=== PATIENT | female | born 1960 | race Caucasian/White ===

== ENCOUNTER 2022-10-30 21:28 | Day surgery (SDC) | payer BC, SELFPAY ==
[2022-10-30 21:56] VITALS: BP 120/71; PULSE 74; RESP 18; TEMP 36.9; O2SAT 99; BMI 30.1
--- NOTE | 2022-10-30 22:25 | ED.ABDPAIN ---
HPI - Abdominal Pain General Time Seen by Provider: 22:25 Date Seen: 10/30/22 Chief Complaint: Abdominal Pain Stated Complaint: Right Side Abdominal Pain Time Seen by Provider: 10/30/22 22:23 Source: patient, RN notes reviewed and old records reviewed Mode of arrival: ambulatory Limitations: no limitations History of Present Illness HPI narrative: Astrid is a very pleasant 62-year-old female previously healthy who comes to the emergency room for evaluation of right sided abdominal pain. Patient notes that she works 12 hour shifts and got off shift at 0500 hours this morning. She noted some discomfort in the right side of her abdomen and her back and took some aspirin before she went to bed. She got up this evening was able to walk to work with no problem but when she got there she noted that movement definitely increased her pain and stated that every step seemed to make her more uncomfortable. She notes having night sweats a few nights ago but no fever or chills. She denies nausea or vomiting. She notes the pain has been increasing and she points to the right lower quadrant as the source of her discomfort. She denies dysuria or hematuria. She also feels like her abdomen is somewhat bloated and feels like she has not been passing gas as much as normal. She has not noticed any diarrhea. Patient has had a large ovarian cyst removal with oophorectomy remotely in the past. She did have some mesh placed in her abdomen at that time. She has not had a history of small-bowel obstruction. She denies any trauma. Patient notes that she has false dentition top and bottom. She has had previous surgeries with no problems with anesthesia. She has remote history of smoking and uses alcohol only occasionally. Patient notes that 2 years ago she had severe COVID and was hospitalized for extended period. She states that she lost all of her hair. This was in [place]. No further respiratory problems at this time. Related Data Home Medications Medication Instructions Recorded Confirmed escitalopram oxalate 5 mg tablet 5 mg PO DAILY 10/30/22 10/30/22 losartan 50 mg-hydrochlorothiazide 1 tab PO DAILY 10/30/22 10/30/22 12.5 mg tablet nabumetone 500 mg tablet 500 mg PO BID 10/30/22 10/30/22 Allergies Allergy/AdvReac Type Severity Reaction Status Date / Time Penicillins Allergy Mild Hives Verified 10/31/22 02:22 Review of Systems Status of ROS Reports: 10 or more systems reviewed and unremarkable except as noted in History and below Const Reports: night sweats (A few nights ago); Denies: fever or chills Eyes Denies: change in vision ENMT Denies: throat pain or neck pain Cardio Denies: chest pain or shortness of breath with exertion Resp Denies: shortness of breath or cough GI Reports: abdominal pain; Denies: nausea, vomiting or diarrhea Denies: painful urination Musculo Denies: neck pain Integ/Breast Denies: rash PFSH PFSH Surgical History (Updated 10/30/22 @ 23:03 by Juan Donaldson RN) History of hysterectomy Social History Smoking Status: Former smoker Do you use any of these nicotine containing products: None Second hand tobacco smoke exposure: No How often do you have a drink containing alcohol: never How often do you have six or more drinks on one occasion: Never AUDIT-C Alcohol total score: 0 Non-prescribed substance use: denies use Exam Narrative: Exam Narrative: Alert and oriented. Nontoxic in appearance. Head is atraumatic normocephalic. Oral cavity with moist mucous membranes. Pharynx is well visualized. Neck is supple without lymphadenopathy Heart with regular rate and rhythm and lungs are clear to auscultation Abdomen is soft. Patient has tenderness noted right lower quadrant and to a lesser extent right upper quadrant. Bowel sounds are present. Abdomen somewhat protuberant. Straight leg raise does not increase discomfort but internal external rotation of the right hip does increase pain. Hitting the right heel does increase abdominal pain. Const: Vital Signs, click to edit/add: Vital Signs - 24 hr 10/30/22 21:56 10/30/22 22:50 10/30/22 22:58 Temperature 98.5 F 98.5 F Pulse Rate 68 Pulse Rate [Right Pulse Oximeter] 74 Respiratory Rate 18 16 Blood Pressure 151/69 H Blood Pressure [Ri ght Upper Arm] 120/71 Pulse Oximetry 99 93 Oxygen Delivery Me thod Room Air 10/31/22 00:12 10/30/22 23:03 10/30/22 23:00 Temperature 98.5 F Pulse Rate 65 Pulse Rate [Right Pulse Oximeter] Respiratory Rate 16 Blood Pressure 135/67 Blood Pressure [Ri ght Upper Arm] Pulse Oximetry 94 94 Oxygen Delivery Me thod 10/30/22 23:32 10/31/22 00:02 Temperature Pulse Rate 69 65 Pulse Rate [Right Pulse Oximeter] Respiratory Rate 16 16 Blood Pressure 131/61 142/66 H Blood Pressure [Ri ght Upper Arm] Pulse Oximetry 92 92 Oxygen Delivery Me thod Documenting provider has reviewed patient's vital signs: yes Course Course Hospital Course: Patient noted to have some peritoneal signs with rebound tenderness and pain with hip rotation. She has no fever chills at this time. Differential diagnosis includes but is not limited to appendicitis, diverticulitis, bowel obstruction, UTI, ureteral colic, ovarian pathology,. Patient will have IV placed and be given Toradol 15 mg IV and 1 L normal saline. Labs will include a CBC, comprehensive panel, CRP, urinalysis. Will plan on getting abdominal and pelvic CT. Vital Signs Vital signs: Initial Vital Signs Temperature 98.5 F 10/30/22 21:56 Temperature Source Temporal Artery Scan 10/30/22 21:56 Pulse Rate 74 10/30/22 21:56 Respiratory Rate 18 10/30/22 21:56 Blood Pressure 120/71 10/30/22 21:56 Blood Pressure Mean 87 10/30/22 21:56 Blood Pressure Position Sitting 10/30/22 21:56 Pulse Oximetry 99 10/30/22 21:56 Oxygen Delivery Method 10/30/22 21:56 Vital Signs Temperature 98.5 F 10/30/22 21:56 Pulse Rate 74 10/30/22 21:56 Respiratory Rate 18 10/30/22 21:56 Blood Pressure 120/71 10/30/22 21:56 Pulse Oximetry 99 10/30/22 21:56 Oxygen Delivery Method 10/30/22 21:56 Temperature 98.5 F 10/31/22 00:12 Pulse Rate 65 10/31/22 00:02 Respiratory Rate 16 10/31/22 00:02 Blood Pressure 142/66 H 10/31/22 00:02 Pulse Oximetry 92 10/31/22 00:02 Oxygen Delivery Method 10/30/22 21:56 MDM - Abdominal Pain MDM Narrative Medical decision making narrative: 1. Acute appendicitis-patient has a CT confirmed appendicitis after onset of pain almost 24 hours ago. Patient is afebrile with normal vital signs but does have an elevated white count and CRP. Consult with surgeon Dr. Cárdenas. Plan is for 0600 hours appendectomy. Will initiate antibiotics x1. Given her penicillin allergy will use Rocephin 1 g and Flagyl 500 mg IV. Fluids maintenance after 1 L bolus will be 125 mils per hour. 2. Lung nodule-plain film noted to have lung nodule. Unfortunately we had ability to do comparison as we had no x-rays on file. CT was recommended and this has turned out to be reassuring with no evidence of nodule or abnormal finding. 3. History of severe COVID-this was 2 years ago and did require extended hospitalization in [place].. Patient is fairly active and able to walk to work without difficulty. 2. Disposition- at this time we will keep patient in the emergency room as surgery is scheduled for 0600 hours which is approximately 4 hours from this time. Patient initially declined pain medication but now is receptive. Will use morphine 4 mg IV q.4 hours p.r.n.. Patient will be admitted to same-day surgery. EKG reassuring and chest CT without evidence of abnormality. Patient has had no previous problems with anesthesia. She represents low risk for surgery. Lab Data Attestation: I reviewed the patient's lab results. Labs: Lab Results 10/30/22 10/30/22 10/30/22 Range/Units 22:40 22:40 22:40 WBC 13.78 H (4.50-11.00) K/uL RBC 4.33 (4.00-5.20) m/uL Hgb 13.7 (12.0-16.0) gm/dL Hct 40.8 (33.0-51.0) % MCV 94 (80-100) fL MCH 32 (26-34) pg MCHC 34 (32-36) gm/dL RDW Coeff of [place] 13.1 (11.5-15.5) % Plt Count 286 (140-440) K/uL Neut % (Auto) 78.8 H (42.0-72.0) % Lymph % (Auto) 11.2 L (20-44) % [place] % (Auto) 7.4 (0.0-11.0) % Eos % (Auto) 0.9 (0.0-7.0) % Baso % (Auto) 0.6 (0.0-3.0) % Neut # (Auto) 10.90 H (1.7-7.0) K/uL Lymph # (Auto) 1.50 (0.90-2.90) K/uL [place] # (Auto) 1.00 H (0.00-0.90) K/UL Eos # (Auto) 0.10 (0.00-0.50) K/uL Baso # (Auto) 0.10 (0.00-0.30) K/uL Sodium 138 (135-149) mmol/L Potassium 3.5 L (3.6-5.1) mmol/L Chloride 103 (96-114) mmol/L Carbon Dioxide 27 (20-32) mmol/L BUN 20 (7-30) mg/dL Creatinine 0.6 (0.5-1.5) mg/dL Estimated Creat Clear 47.01 Estimated GFR 100 ml/min Glucose 123 H (60-115) mg/dL Calcium 9.2 (8.4-10.6) mg/dL Total Bilirubin 0.6 (0.1-1.5) mg/dL AST 21 (12-35) U/L ALT 19 (4-35) U/L Alkaline Phosphatase 111 (40-150) U/L C-Reactive Protein 3.2 H (0.5-1.0) mg/dL Total Protein 7.4 (6.0-8.3) g/dL Albumin 4.4 (3.3-5.0) g/dL Lipase 91 (23-300) U/L Urine Color Yellow (Yellow) Urine Appearance Clear (Clear) Urine pH 5.5 (5.0-8.5) Ur Specific [place] 1.020 (1.000-1.030) Urine Protein Negative (Negative) Urine Glucose (UA) Negative (Negative) Urine Ketones Negative (Negative) Urine Blood Trace-intact A (Negative) Urine Nitrite Negative (Negative) Urine Bilirubin Negative (Negative) Urine Urobilinogen 0.2 (0.2-1.0) Ur Leukocyte Esterase Negative (Negative) Urine RBC 0-2 (0-2) Urine WBC 0-2 (0-5) Ur Squamous Epith Cells None (None-Few) Urine Bacteria None (None) SARS-CoV-2 (PCR) (Negative) Influenza Type A (PCR) (Negative) Influenza Type B (PCR) (Negative) 10/31/22 Range/Units 01:50 WBC (4.50-11.00) K/uL RBC (4.00-5.20) m/uL Hgb (12.0-16.0) gm/dL Hct (33.0-51.0) % MCV (80-100) fL MCH (26-34) pg MCHC (32-36) gm/dL RDW Coeff of [place] (11.5-15.5) % Plt Count (140-440) K/uL Neut % (Auto) (42.0-72.0) % Lymph % (Auto) (20-44) % [place] % (Auto) (0.0-11.0) % Eos % (Auto) (0.0-7.0) % Baso % (Auto) (0.0-3.0) % Neut # (Auto) (1.7-7.0) K/uL Lymph # (Auto) (0.90-2.90) K/uL [place] # (Auto) (0.00-0.90) K/UL Eos # (Auto) (0.00-0.50) K/uL Baso # (Auto) (0.00-0.30) K/uL Sodium (135-149) mmol/L Potassium (3.6-5.1) mmol/L Chloride (96-114) mmol/L Carbon Dioxide (20-32) mmol/L BUN (7-30) mg/dL Creatinine (0.5-1.5) mg/dL Estimated Creat Clear Estimated GFR ml/min Glucose (60-115) mg/dL Calcium (8.4-10.6) mg/dL Total Bilirubin (0.1-1.5) mg/dL AST (12-35) U/L ALT (4-35) U/L Alkaline Phosphatase (40-150) U/L C-Reactive Protein (0.5-1.0) mg/dL Total Protein (6.0-8.3) g/dL Albumin (3.3-5.0) g/dL Lipase (23-300) U/L Urine Color (Yellow) Urine Appearance (Clear) Urine pH (5.0-8.5) Ur Specific [place] (1.000-1.030) Urine Protein (Negative) Urine Glucose (UA) (Negative) Urine Ketones (Negative) Urine Blood (Negative) Urine Nitrite (Negative) Urine Bilirubin (Negative) Urine Urobilinogen (0.2-1.0) Ur Leukocyte Esterase (Negative) Urine RBC (0-2) Urine WBC (0-5) Ur Squamous Epith Cells (None-Few) Urine Bacteria (None) SARS-CoV-2 (PCR) Negative SARS-CoV-2 (Negative) Influenza Type A (PCR) Negative PCR FLU A (Negative) Influenza Type B (PCR) Negative PCR FLU B (Negative) Imaging Data CT scan - abdomen: Attestation: I have reviewed the pertinent imaging results. My impression: Acute appendicitis Radiologist's impression: Lower chest: Unremarkable. Liver: Unremarkable. Spleen: Unremarkable. Pancreas: Unremarkable. Gallbladder: Unremarkable. Kidney: Unremarkable. No kidney or ureteral stones or obstruction seen. Adrenal: Unremarkable. Bowel: Unremarkable. The appendix is distended measuring 12 mm. There is mild wall enhancement and trace ground-glass infiltration of the surrounding fat is seen. No periappendiceal abscess is seen. Vascular: Unremarkable. Lymph: Unremarkable. Peritoneum: Unremarkable. No pneumoperitoneum is seen. No significant ascites is noted. Pelvis: The patient is status post hysterectomy. Soft tissue: Unremarkable. Bone: Unremarkable for age. IMPRESSION: 1. The appendix is distended measuring 12 mm. There is mild wall enhancement and trace ground-glass infiltration of the surrounding fat is seen. No periappendiceal abscess is seen. These findings are consistent with acute appendicitis. CT scan - chest: Attestation: I have reviewed the pertinent imaging results. Radiologist's impression: Cardiovascular: The heart has an unremarkable appearance and size. The pulmonary arteries are unremarkable in appearance. No sign of aneurysm or dissection in the thoracic aorta. Mediastinum: No mass or adenopathy seen. Lung: Moderate centrilobular emphysema is present bilaterally and most prominent in the apices. No suspicious pulmonary nodules are identified and the recent asymmetric density in the right apex may be due to summation artifacts on parenchymal scarring seen surrounding an area of focal emphysema. Pleura and pericardium: No sign of pleural effusion seen. No significant pericardial effusion is present. Chest wall and axilla: No mass or adenopathy seen. Bone: Unremarkable for age. Upper abdomen: Unremarkable. IMPRESSION: 1. No suspicious pulmonary nodules are identified and the recent asymmetric density in the right apex may be due to summation artifacts on parenchymal scarring seen surrounding an area of focal emphysema. ECG Data Attestation: I personally reviewed and interpreted this ECG as follows: ECG interpretation date: 10/31/22 Interpretation: EKG by my read shows sinus bradycardia at a rate of 58. I do not note any any acute ST or T-wave changes. Slight flattening of the T-wave in AVF and T-wave inversion mild in 3. No acute changes. Discharge Plan Discharge Clinical Impression: Acute appendicitis Patient Disposition: Admitted As Inpatient Condition: Improved
--- NOTE | 2022-10-30 22:35 | CRLHL7_ITS ---
For Patients: As a result of the Cures Act, medical imaging exams and procedure reports are released immediately into your electronic medical record. You may view this report before your referring provider. If you have questions, please contact your health care provider. INDICATION: Right lower quadrant abdominal pelvic pain TECHNIQUE: CT Abdomen and pelvis with i.v. contrast. Coronal and sagittal reformats were obtained. CONTRAST: 83 mL Isovue 370 COMPARISON: None FINDINGS: Lower chest: Unremarkable. Liver: Unremarkable. Spleen: Unremarkable. Pancreas: Unremarkable. Gallbladder: Unremarkable. Kidney: Unremarkable. No kidney or ureteral stones or obstruction seen. Adrenal: Unremarkable. Bowel: Unremarkable. The appendix is distended measuring 12 mm. There is mild wall enhancement and trace ground-glass infiltration of the surrounding fat is seen. No periappendiceal abscess is seen. Vascular: Unremarkable. Lymph: Unremarkable. Peritoneum: Unremarkable. No pneumoperitoneum is seen. No significant ascites is noted. Pelvis: The patient is status post hysterectomy. Soft tissue: Unremarkable. Bone: Unremarkable for age. IMPRESSION: 1. The appendix is distended measuring 12 mm. There is mild wall enhancement and trace ground-glass infiltration of the surrounding fat is seen. No periappendiceal abscess is seen. These findings are consistent with acute appendicitis. Dictated by Alex Rincon MD @ 10/31/2022 12:32:06 AM Please note that all CT scans at this facility use dose modulation, iterative reconstruction, and/or weight-based dosing when appropriate to reduce radiation dose to as low as reasonably achievable. Dictated by: Alex Rincon MD @ 10/31/2022 00:33:59 (Electronically Signed)
[2022-10-30] MEDS: 0.9 % SODIUM CHLORIDE 1000 ml 1,000 ML IV (22:49)
[2022-10-30 22:50] VITALS: TEMP 36.9
[2022-10-30] MEDS: KETOROLAC 15 MG/ML inj IVP (22:50)
[2022-10-30 22:54] LABS: Appearance Urine Clear (Clear); Bilirubin Urine Negative (Negative); Blood Urine Trace-intact (Negative); Color Urine Yellow (Yellow); Glucose Urine Negative (Negative); Ketones Urine Negative (Negative); Leukocyte Esterase Urine Negative (Negative); Nitrite Urine Negative (Negative); Protein Urine Negative (Negative); Urobilinogen Urine 0.2 (0.2-1.0); pH Urine 5.5 (5.0-8.5)
[2022-10-30 22:57] LABS: Basophils Percent Auto 0.6 % (0.0-3.0); Eosinophils Percent Auto 0.9 % (0.0-7.0); Hematocrit 40.8 % (33.0-51.0); Hemoglobin* 13.7 gm/dL (12.0-16.0); Immature Granulocytes Pct Auto 1.1 %; Lymphocytes Percent Auto 11.2 % (20-44); Mean Corpuscular HGB Conc 34 gm/dL (32-36); Mean Corpuscular Hemoglobin 32 pg (26-34); Mean Corpuscular Volume 94 fL (80-100); Monocytes Percent Auto 7.4 % (0.0-11.0); Neutrophils Percent Auto 78.8 % (42.0-72.0); Platelet Count* 286 K/uL (140-440); RDW Coefficient of Variation % 13.1 % (11.5-15.5); Red Blood Count 4.33 m/uL (4.00-5.20); White Blood Count* 13.78 K/uL (4.50-11.00)
[2022-10-30 22:58] VITALS: BP 151/69; PULSE 68; RESP 16; O2SAT 93
[2022-10-30 22:58] LABS: Slide Review Reflex No
[2022-10-30 23:00] VITALS: BP 135/67; PULSE 65; RESP 16; O2SAT 94
[2022-10-30 23:03] VITALS: O2SAT 94
[2022-10-30 23:05] LABS: RBC Urine 0-2 (0-2); WBC Urine 0-2 (0-5)
[2022-10-30 23:06] LABS: Albumin* 4.4 g/dL (3.3-5.0); Chloride* 103 mmol/L (96-114)
[2022-10-30 23:07] LABS: Potassium* 3.5 mmol/L (3.6-5.1); Sodium* 138 mmol/L (135-149)
[2022-10-30 23:09] LABS: Creatinine* 0.6 mg/dL (0.5-1.5); Est. Creatinine Clearance* 47.01; Estimated Glomerular Filt Rate 100 ml/min
[2022-10-30 23:10] LABS: Alanine Aminotransferase* 19 U/L (4-35); Alkaline Phosphatase* 111 U/L (40-150); Aspartate Amino Transferase* 21 U/L (12-35); Bilirubin Total* 0.6 mg/dL (0.1-1.5); Blood Urea Nitrogen* 20 mg/dL (7-30); Calcium* 9.2 mg/dL (8.4-10.6); Carbon Dioxide* 27 mmol/L (20-32); Glucose* 123 mg/dL (60-115); Lipase* 91 U/L (23-300); Total Protein* 7.4 g/dL (6.0-8.3)
[2022-10-30 23:13] LABS: C Reactive Protein* 3.2 mg/dL (0.5-1.0)
[2022-10-30 23:32] VITALS: BP 131/61; PULSE 69; RESP 16; O2SAT 92
[2022-10-31] VITALS (26 sets, daily range): BP systolic 102–151; BP diastolic 46–90; PULSE 56–88; RESP 16; TEMP 36.6–36.9; O2SAT 90–100
--- NOTE | 2022-10-31 01:07 | CRLHL7_ITS ---
For Patients: As a result of the Cures Act, medical imaging exams and procedure reports are released immediately into your electronic medical record. You may view this report before your referring provider. If you have questions, please contact your health care provider. INDICATION: Acute appendicitis TECHNIQUE: Chest radiograph 1 view COMPARISON: None FINDINGS: The sensitivity and specificity of the exam are moderately limited by the patient`s body habitus. Mediastinum: The mediastinum is normal in appearance. The cardiac silhouette is mildly enlarged but may be accentuated by the portable technique. Lung: There is an ill-defined asymmetric density in right upper lung zone measuring 9 mm. No sign of pleural effusion seen. No pneumothorax is identified. Bone and Soft tissue: Unremarkable for age. IMPRESSIONS: 1. There is an ill-defined asymmetric density in right upper lung zone measuring 9 mm. Comparison with any prior outside imaging is recommended. If these cannot be obtained, follow up outpatient chest CT is recommended for further evaluation. 2. The cardiac silhouette is mildly enlarged but may be accentuated by the portable technique. Dictated by Alex Rincon MD @ 10/31/2022 1:39:37 AM Dictated by: Alex Rincon MD @ 10/31/2022 01:39:41 (Electronically Signed)
--- NOTE | 2022-10-31 01:53 | CRLHL7_ITS ---
For Patients: As a result of the Century Cures Act, medical imaging exams and procedure reports are released immediately into your electronic medical record. You may view this report before your referring provider. If you have questions, please contact your health care provider. INDICATION: Right upper lung 9mm density recent chest radiograph, appendicitis TECHNIQUE: CT chest with i.v. contrast during the venous phase. Coronal and sagittal reformats were obtained. CONTRAST: 75 mL Isovue 370 COMPARISON: CXR 10/31/2022 FINDINGS: Cardiovascular: The heart has an unremarkable appearance and size. The pulmonary arteries are unremarkable in appearance. No sign of aneurysm or dissection in the thoracic aorta. Mediastinum: No mass or adenopathy seen. Lung: Moderate centrilobular emphysema is present bilaterally and most prominent in the apices. No suspicious pulmonary nodules are identified and the recent asymmetric density in the right apex may be due to summation artifacts on parenchymal scarring seen surrounding an area of focal emphysema. Pleura and pericardium: No sign of pleural effusion seen. No significant pericardial effusion is present. Chest wall and axilla: No mass or adenopathy seen. Bone: Unremarkable for age. Upper abdomen: Unremarkable. IMPRESSION: 1. No suspicious pulmonary nodules are identified and the recent asymmetric density in the right apex may be due to summation artifacts on parenchymal scarring seen surrounding an area of focal emphysema. Dictated by Alex Rincon MD @ 10/31/2022 2:36:55 AM Please note that all CT scans at this facility use dose modulation, iterative reconstruction, and/or weight-based dosing when appropriate to reduce radiation dose to as low as reasonably achievable. Dictated by: Alex Rincon MD @ 10/31/2022 02:37:00 (Electronically Signed)
[2022-10-31] MEDS: MORPHINE 4 MG/ML INJ IVP (02:19)
[2022-10-31] MEDS: 0.9 % SODIUM CHLORIDE 1000 ml 1,000 ML 125 ML IV (02:26)
[2022-10-31] MEDS: cefTRIAXone 1 GM in 0.9 % SODIUM CHLORIDE Mini-bag 100 ML IVPB (02:26)
[2022-10-31 02:39] LABS: PCR FLU A Negative PCR FLU A (Negative); PCR FLU B Negative PCR FLU B (Negative); SARS PCR* Negative SARS-CoV-2 (Negative)
[2022-10-31] MEDS: metroNIDAZOLE 500 MG/100 ML PIGGYBACK IVPB (03:11)
--- NOTE | 2022-10-31 06:01 | P.GSCN_ITS ---
History of Present Illness Consult details Date Seen: 10/31/22 Consult date: 10/31/22 Narrative: 62-year-old female was seen in the emergency room with right-sided flank pain and back pain that started yesterday at work. Patient states that she was working an of a sudden developed back pain on the right side. The pain was described as sharp and worse with movement. The pain persisted and patient did not want to eat. She did not have any nausea vomiting. She had bowel movement yesterday in the evening. In the emergency room patient had elevated WBC of 13. An abdominal CT was obtained that showed a dilated wall enhancing appendix that appears to be pos sibly retrocecal. There is no adjacent phlegmon or periappendiceal abscess. Review of Systems Narrative: General: no fevers HENT: no problems swallowing CV: Denies shortness of breath but states that her ?oxygen level? is not as good as it used to be since she had COVID 3 years ago. Resp: no cough GI: See above : no dysuria, no increased urinary frequency, no hematuria Skin: no new rashes Musculoskeletal: See above Neuro: no muscle weakness Psyche: no depression, no anxiety PFSH PFSH Medical History (Updated 10/31/22 @ 06:04 by Anthony Garrison MD) Asthma HTN (hypertension) Surgical History (Updated 10/31/22 @ 06:04 by Anthony Garrison MD) History of hysterectomy S/P carpal tunnel release S/P exploratory laparotomy S/P tubal ligation Social History (Updated 10/31/22 @ 06:05 by Anthony Garrison MD) Narrative: works at [employer] Smoking Status: Former smoker Do you use any of these nicotine containing products: None Second hand tobacco smoke exposure: No How often do you have a drink containing alcohol: never How often do you have six or more drinks on one occasion: Never AUDIT-C Alcohol total score: 0 Non-prescribed substance use: denies use Meds Home Medications and Allergies Home Medications Medication Instructions Recorded Confirmed Type escitalopram oxalate 5 mg tablet 5 mg PO DAILY 10/30/22 10/30/22 History losartan 50 mg-hydrochlorothiazide 1 tab PO DAILY 10/30/22 10/30/22 History 12.5 mg tablet nabumetone 500 mg tablet 500 mg PO BID 10/30/22 10/30/22 History Allergies Allergy/AdvReac Type Severity Reaction Status Date / Time Penicillins Allergy Mild Hives Verified 10/31/22 02:22 Exam Narrative: Exam Narrative: General appearance: Alert, cooperative, and in no distress Pulmonary: Chest symmetric, lungs clear bilaterally Cardiovascular Heart: Regular rate and rhythm, S1, S2, no murmurs/rubs/gallops Gastrointestinal Abdominal: soft, not distended, tender to palpation in the right lower quadrant with rebound tenderness. Minimally tender to palpation in epigastrium. Skin: Normal skin color, texture, and turgor. No rashes or lesions. Psychiatric: Alert, cooperative, normal affect. Const: Vital Signs, click to edit/add: Vital Signs - 24 hr 10/30/22 21:56 10/30/22 22:50 10/30/22 22:58 Temperature 98.5 F 98.5 F Pulse Rate 68 Pulse Rate [Right Pulse Oximeter] 74 Respiratory Rate 18 16 Blood Pressure 151/69 H Blood Pressure [Ri ght Upper Arm] 120/71 Pulse Oximetry 99 93 Oxygen Delivery Me thod Room Air 10/31/22 00:12 10/30/22 23:03 10/30/22 23:00 Temperature 98.5 F Pulse Rate 65 Pulse Rate [Right Pulse Oximeter] Respiratory Rate 16 Blood Pressure 135/67 Blood Pressure [Ri ght Upper Arm] Pulse Oximetry 94 94 Oxygen Delivery Me thod 10/30/22 23:32 10/31/22 00:02 10/31/22 00:32 Temperature Pulse Rate 69 65 64 Pulse Rate [Right Pulse Oximeter] Respiratory Rate 16 16 16 Blood Pressure 131/61 142/66 H 151/66 H Blood Pressure [Ri ght Upper Arm] Pulse Oximetry 92 92 93 Oxygen Delivery Me thod 10/31/22 01:02 10/31/22 01:32 10/31/22 02:01 Temperature Pulse Rate 61 58 L 67 Pulse Rate [Right Pulse Oximeter] Respiratory Rate 16 16 16 Blood Pressure 141/71 H 133/60 148/70 H Blood Pressure [Ri ght Upper Arm] Pulse Oximetry 93 91 95 Oxygen Delivery Me thod 10/31/22 02:32 10/31/22 03:02 10/31/22 03:32 Temperature Pulse Rate 60 64 58 L Pulse Rate [Right Pulse Oximeter] Respiratory Rate 16 16 16 Blood Pressure 140/61 H 141/62 H 134/64 Blood Pressure [Ri ght Upper Arm] Pulse Oximetry 95 95 95 Oxygen Delivery Me thod 10/31/22 04:02 10/31/22 04:32 10/31/22 05:01 Temperature Pulse Rate 58 L 57 L 57 L Pulse Rate [Right Pulse Oximeter] Respiratory Rate 16 16 16 Blood Pressure 130/55 L 127/66 134/58 L Blood Pressure [Ri ght Upper Arm] Pulse Oximetry 94 94 94 Oxygen Delivery Me thod 10/31/22 05:32 Temperature Pulse Rate 59 L Pulse Rate [Right Pulse Oximeter] Respiratory Rate 16 Blood Pressure 128/69 Blood Pressure [Ri ght Upper Arm] Pulse Oximetry 93 Oxygen Delivery Me thod Results Labs Labs: Abnormal lab results 10/30/22 10/30/22 10/30/22 Range/Units 22:40 22:40 22:40 WBC 13.78 H (4.50-11.00) K/uL Neut % (Auto) 78.8 H (42.0-72.0) % Lymph % (Auto) 11.2 L (20-44) % Neut # (Auto) 10.90 H (1.7-7.0) K/uL [place] # (Auto) 1.00 H (0.00-0.90) K/UL Potassium 3.5 L (3.6-5.1) mmol/L Glucose 123 H (60-115) mg/dL C-Reactive Protein 3.2 H (0.5-1.0) mg/dL Urine Blood Trace-intact A (Negative) Diabetes panel 10/30/22 Range/Units 22:40 Sodium 138 (135-149) mmol/L Potassium 3.5 L (3.6-5.1) mmol/L Chloride 103 (96-114) mmol/L Carbon Dioxide 27 (20-32) mmol/L BUN 20 (7-30) mg/dL Creatinine 0.6 (0.5-1.5) mg/dL Glucose 123 H (60-115) mg/dL Calcium 9.2 (8.4-10.6) mg/dL AST 21 (12-35) U/L ALT 19 (4-35) U/L Alkaline Phosphatase 111 (40-150) U/L Total Protein 7.4 (6.0-8.3) g/dL Albumin 4.4 (3.3-5.0) g/dL Calcium panel 10/30/22 Range/Units 22:40 Calcium 9.2 (8.4-10.6) mg/dL Albumin 4.4 (3.3-5.0) g/dL Pituitary panel 10/30/22 Range/Units 22:40 Sodium 138 (135-149) mmol/L Potassium 3.5 L (3.6-5.1) mmol/L Chloride 103 (96-114) mmol/L Carbon Dioxide 27 (20-32) mmol/L BUN 20 (7-30) mg/dL Creatinine 0.6 (0.5-1.5) mg/dL Glucose 123 H (60-115) mg/dL Calcium 9.2 (8.4-10.6) mg/dL Adrenal panel 10/30/22 Range/Units 22:40 Sodium 138 (135-149) mmol/L Potassium 3.5 L (3.6-5.1) mmol/L Chloride 103 (96-114) mmol/L Carbon Dioxide 27 (20-32) mmol/L BUN 20 (7-30) mg/dL Creatinine 0.6 (0.5-1.5) mg/dL Glucose 123 H (60-115) mg/dL Calcium 9.2 (8.4-10.6) mg/dL Total Bilirubin 0.6 (0.1-1.5) mg/dL AST 21 (12-35) U/L ALT 19 (4-35) U/L Alkaline Phosphatase 111 (40-150) U/L Total Protein 7.4 (6.0-8.3) g/dL Albumin 4.4 (3.3-5.0) g/dL All other labs normal. Assessment and Plan Assessment and plan (1) Acute appendicitis: Status: Acute Plan 62-year-old female presents with acute appendicitis. I discussed with the patient my clinical findings and her imaging findings. Patient has dilated wall enhancing appendix with elevated WBC. Her clinical exam is also consistent with acute appendicitis. I recommended to proceed with laparoscopic appendectomy. The procedure was discussed in detail. The risks associated the procedure including infection, bleeding, and injury to intra- abdominal organs were all discussed with the patient, and she agreed to proceed.
[2022-10-31] MEDS: BUPIVACAINE 0.25% 30 ML 15 ML INJECTION (06:58)
--- NOTE | 2022-10-31 07:09 | P.GSOP_ITS ---
Operative Note Date of procedure: 10/31/22 Pre-op diagnosis: 1. Acute appendicitis. Post-op diagnosis: 1. Acute suppurative appendicitis. Type of Procedure: 1. Laparoscopic appendectomy. Indications: 62-year-old female presented to emergency room with right-sided flank and back pain that started yesterday at work. Patient's pain was sharp and constant. Patient had anorexia. She denies any nausea vomiting. In the emergency room she was found to have an elevated WBC of 13. An abdominal CT her appendix was found to be dilated wall enhancing with no periappendiceal abscess. On clinical exam she had tenderness to palpation in the right lower quadrant with rebound tenderness. Given patient's clinical information and her imaging findings, acute appendicitis was suspected, and laparoscopic appendectomy was recommended. The risks of procedure including infection, bleeding, and injury to intra- abdominal organs were all discussed with the patient, and she agreed to proceed. Procedure Description: After discussing the risks and benefits of the procedure, the patient signed informed consent.? The operative site was marked and the patient was brought to the operating room and placed on the operating table in supine position.? Care was taken to pad the patient's pressure points.?? The patient was then intubated by anesthesia.?? The operative site was then prepped and draped in the usual sterile fashion.? A time-out was then performed. A 5-mm laparoscopy port was placed in the left upper quadrant guided by a 5-mm laparoscope placed into a translucent trochar. Passage through the layers of the abdominal wall was visualized with the laparoscope. A pneumoperitoneum was established. A 30-degree 5-mm laparoscope was advanced into the abdomen. The abdomen was briefly surveyed, and there was no evidence of diffuse peritonitis. A 12-mm port was placed in the left low quadrant. Omental adhesions were noted in the lower abdomen. Those were taken down with Harmonic scalpel. A 5 mm port was then placed suprapubically under direct visualization. Left upper quadrant entrance port was then examined intraabdominally by placing the camera through the left lower quadrant port and no intraabdominal injury was seen. The patient was placed in Trendelenburg position, allowing the abdominal contents to shift cephalad. The small bowel was moved toward the midline in the abdomen and this allowed for identification of the appendix. It appeared to be inflamed with no evidence of periappendiceal abscess. The appendix was grasped and dissected from the peritoneum using Harmonic scalpel. A [place] clamp was passed between the appendiceal mesentery and the base of the appendix, creating a window. The appendiceal mesentery was skeletonized with Harmonic scalpel. Arterial bleeding was noted to be seen from the appendiceal mesentery. This was controlled with 5 mm clips and Harmonic scalpel. No further bleeding was seen. The base of the appendix was skeletonized with Harmonic scalpel. A vascular load Endo-KRISTEN stapler was used to staple the appendix at its base. The appendix was then placed in an endoscopic retrieval bag and extracted from the abdomen through the 12-mm port. The abdomen was surveyed for hemostasis. And no bleeding was seen. The 12-mm port was withdrawn and the fascial defect was closed with 0-0 Vicryl stitch using Lionel Heather needle under direct visualization. The 5-mm port was removed under direct visualization. The left upper quadrant port was used to evacuate the pneumoperitoneum and then withdrawn. The skin incisions were closed with 4-0 monocryl. Steri-Strips were applied over the incisions. All counts were correct at the end of the case. The patient tolerated this procedure well and was transferred to PACU in stable condition. Findings: Dilated inflamed appendix with no evidence of perforation. Anesthesia: GETA Surgeon: Anthony Garrison MD Specimen: Appendix Condition: stable Disposition: PACU
--- NOTE | 2022-10-31 07:14 | W.ANESCHARGE ---
Anesthesia Charges Start Date/Time Anesthesia Start Date: 10/31/22 Anesthesia Start Time: 06:07 Stop Date/Time Anesthesia Stop Date: 10/31/22 Anesthesia Stop Time: 07:14 Summary Emergency: Yes
--- NOTE | 2022-10-31 11:56 | PC.NURSE ---
shift note: pt to room via bed @ 4656. pt a&o x3. pt denied pain throughout recovery. lap sites to abd with intact steri strips and are dry. Ice to incisions. pt had toast, water, juice and jello w/o nausea. pt encouraged to keep using IS and to continue at home due to low saturations while asleep. pt states she does sleep deeply. Pt ambulated in hernandes 400ft w/o increased pain. Pt voided small amount prior to dc. LS clr. Reviewed dc instructions and copies sent with pt. Belongings reviewed and sent with pt at dc. IV dc'd intact.
== END 2022-10-31 10:30 | disposition home or self-care (01) ==
LOC: ED 10-31 01:49 → SS 10-31 04:30 → MEDSURG 10-31 08:06
PROVIDERS: Emergency Provider Family Medicine; Visit Provider Surgery
PROC: 0DTJ4ZZ Resection of Appendix, Percutaneous Endoscopic Approach (ICD-10-PCS; CPT 44970; principal; 2022-10-31 06:00)
DX: K35.80 Unspecified acute appendicitis (principal); R91.1 Solitary pulmonary nodule; Z87.891 Personal history of nicotine dependence; I10 Essential (primary) hypertension; J45.909 Unspecified asthma, uncomplicated
CPT/HCPCS: 44970; 00840; 36415; 71045; 71260; 74177; 80053; 81001; 83690; 85025; 86140; 87631; 88304; 93005; 94761; 99140; 99284; 99285; J0330; J0696; J1100; J1885; J2270; J2405; J2704; J2710; J3010; J3490; J7030; Q9967; S0030

== ENCOUNTER 2024-08-30 11:22 | Outpatient (CLI) | payer BC, SELFPAY ==
--- OUTSIDE RECORDS SUMMARY | 2024-08-30 11:27 | XMS_ITS | Referral Summary ---
Author Organization [facility] Address [address] [place] [address] Care Team Providers Care Paper Goods Machine Set Up Operator Name Role Phone Angelo Miner M.D. Primary Care Provider Source Comments Patient records contain information from all sites at [facility]. For routine questions regarding patient records, call [phone] during business hours, M-F 8:00 AM - 5:00 PM Central Time. Record requests for emergency care only can be directed to [phone] at any time.[facility] Encounters Date Type Department Care Team Description 07/14/2024 Refill Department of Family Medicine, [facility], in [address] [address] Angelo Miner M.D. Med Change Request 07/14/2024 1:30 PM CDT Comprehensive Visit Department of Family Medicine, [facility], in [address] [phone] Angelo Miner M.D. Well Adult Examination Normal (Primary Dx); Hypertension Essential Primary; Asthma (HCC); Rash; Hyperlipidemia; Overweight Body Mass Index 25-29.9 Adult 07/12/2024 11:30 AM CDT - 07/12/2024 11:59 PM CDT Hospital Encounter Department of Radiology in [place], [place] [address] [place] [address] Angelo Miner M.D. Screening Mammogram Breast Cancer Discharge Disposition: Home or Self Care 07/12/2024 11:20 AM CDT - 07/12/2024 11:29 AM CDT Hospital Encounter Department of Laboratory Medicine in [place] [address] [facility] [place] [address] Angelo Miner M.D. Monitoring For Therapeutic Drug Therapy Discharge Disposition: Home or Self Care from Last 3 Months Allergies Active Allergy Reactions Criticality Noted Date Comments Penicillins GI intolerance Medium 08/08/2021 Medications multivitamin capsule Take 1 capsule by mouth daily. Active ofloxacin (OCUFLOX) 0.3 % ophthalmic solution 3 Active escitalopram (LEXAPRO) 5 mg tablet TAKE 1 TABLET BY MOUTH DAILY. CAN TAKE UP TO 3 PER DAY 270 tablet 3 4 Active fluconazole (Diflucan) 100 mg tablet Take 1 tablet (100 mg total) by mouth as needed (Use only if Thrush present from inhaler usage.). 15 tablet 5 4 Active allopurinoL (Zyloprim) 100 mg tablet Take 1 tablet (100 mg total) by mouth daily. 90 tablet 3 4 Active cyclobenzaprine (FlexeriL) 10 mg tablet Take 1 tablet (10 mg total) by mouth at bedtime as needed for muscle spasms. 30 tablet 11 4 Active nabumetone (Relafen) 500 mg tablet Take 1 tablet (500 mg total) by mouth 2 (two) times a day. 180 tablet 3 4 Active albuterol 90 mcg/actuation inhaler Inhale 2 puffs every 4 (four) hours as needed for wheezing. 18 g 11 4 Active losartan-hydroC HLOROthiazide (Hyzaar) 50-12.5 mg per tablet Take 1 tablet by mouth daily. 90 tablet 3 4 Active fluticasone propion-salmete roL (Wixela Inhub) 250-50 mcg/dose diskus inhaler Inhale 1 puff 2 (two) times a day. Rinse mouth with water after use to reduce aftertaste and incidence of candidiasis. Do not swallow. 60 each 11 4 Active clobetasoL (Temovate) 0.05 % cream APPLY TOPICALLY NEEDED FOR RASH 30 g 11 4 Active Active Problems Problem Noted Date Diagnosed Date Hypertension Essential Primary 10/14/2023 Asthma 10/14/2023 History Of Falling 10/14/2023 Immunizations Name Administration Dates Next Due Influenza, Injectable, Mdck, Quadrivalent 2021,07/16/2021 Influenza, Quadrivalent, Adjuvanted, Preservativ e Free 07/21/2023 RSV: respiratory syncytial v irus (ABRYSVO) bivalent vaccine 07/14/2024 SARS-COV-2 (COVID-19) - PFIZ ER (Discontinued)(12 years or older) 10/08/2021 Tdap 04/23/2023 influenza trivalent high dose (HD)(PF) Social History Tobacco Use Types Packs/Day Years Used Date Smoking Tobacco: Former Smokeless Tobacco: Never Tobacco Cessation:Counseling Given: Not Answered [facility] Conturities Answer Date Recorded In the past 12 months has [facility] [employer], [employer], oil, or water [employer] threatened to shut off services in your home? No 07/14/2024 Humiliation, Afraid, Rape, and Kick questionnair e Answer Date Recorded Within the last year, have y ou been afraid of your partner or ex-partner? No 04/23/2023 Within the last year, have y ou been humiliated or emotionally abused in other ways by your partner or ex-partner? No 04/23/2023 Physically Abused Not on file 04/23/2023 Sexually Abused Not on file 04/23/2023 Overall Financial Resource Strain (CARDIA) Answe r Date Recorded How hard is it for you to pa y for the very basics like food, housing, medical care, and heating? Not hard at all 04/23/2023 PHQ-2 Answer Date Recorded PHQ-2 Score 1 07/14/2024 Exercise Vital Sign Answer Date Recorde d On average, how many days pe r week do you engage in moderate to strenuous exercise (like a brisk walk)? 6 days Minutes of Exercise per Session Not on file 07/14/2024 Hunger Vital Sign Answer Date Recorded Within the past 12 months, y ou worried that your food would run out before you got the money to buy more. Never true 07/14/20 24 Within the past 12 months, t he food you bought just didn't last and you didn't have money to get more. Never true 07/14/2024 PRAPARE - Transportation Answer Date Re corded In the past 12 months, has l ack of transportation kept you from medical appointments or from getting medications? No 07/05 In the past 12 months, has l ack of transportation kept you from meetings, work, or from getting things needed for daily living? No 07/14/2024 Nutrition Answer Date Recorded On average, how many serving s of fruits and vegetables do you eat per day (serving size is equal to 1 cup or approximately the size of a tennis ball)? 0-2 07/14/2024 Dental Answer Date Recorded Dental: Regular Dentist Yes 04/23/20 Employment Answer Date Recorded Employment status Employed and actively working without restrictions 07/14/2024 Housing Stability Answer Date Recorded What is your living situation today? I have a [facility] place to live 07/14/2024 Comments No Sex and Gender Information Value Date Recorded Sex Assigned at Female 07/14/2024 12:58 PM CDT Legal Sex Female 6:59 AM ELDERLY CAREGIVER Gender Identity Not on file Sexual Orientation Straight 07/14/2024 12 :58 PM CDT Last Filed Vital Signs Vital Sign Reading Time Taken Comments Blood Pressure 133/61 07/14/2024 1:21 PM CDT Pulse 53 07/14/2024 1:21 PM CDT Temperature 35.7 C (96.3 F) 07/14/2024 1:21 PM CDT Respiratory Rate 16 07/14/2024 1:21 PM CDT Oxygen Saturation 96% 10/14/2023 10:52 AM ELDERLY CAREGIVER Inhaled Oxygen Concentration - - Weight 78.5 kg (173 lb 1 oz) 07/14/2024 1:21 PM CDT Height 162.3 cm (5' 3.9) 07/14/2024 1:21 PM CDT Body Mass Index 29.8 07/14/2024 1:21 PM CDT Plan of Treatment Not on file Procedures Procedure Name Priority Date/Time Associated Diagnosis Comments BI BREAST SCREENING BILATERAL WITH TOMOSYNTHESIS RAD - Routine (most inpatients and all outpatients) 07/12/2024 11:57 AM CDT Screening Mammogram Breast Cancer BASIC METABOLIC PANEL, S/P Routine 07/12/2024 11:33 AM CDT Monitoring For Therapeutic Drug Therapy from Last 3 Months Results * BI Breast Screening Bilateral with Tomosynthesis (07/12/2024 11:57 AM CDT) Anatomical Region Laterality Modality Breast, Breast Imaging RST L OS, Breast Imaging ARZ LOS, Breast Imaging FLA LOS Bilateral Mammography Impressions 07/12/2024 12:50 PM CDT Negative. RECOMMENDATION: Annual Screening Mammogram ASSESSMENT: BI-RADS: 1: Negative. Narrative 07/12/2024 12:50 PM CDT EXAM: BI BREAST SCREENING BILATERAL WITH TOMOSYNTHESIS Current study was evaluated with a Computer Aided Detection (CAD) system. INDICATION: Screening mammogram. COMPARISON: Prior exam(s) were available and reviewed for comparison. DENSITY: c. The breast(s) are heterogeneously dense, which may obscure small masses. FINDINGS: No mammographic findings of malignancy. Procedure Note Rene Anderson M.D. - 07/12/2024 EXAM: BI BREAST SCREENING BILATERAL WITH TOMOSYNTHESIS Current study was evaluated with a Computer Aided Detection (CAD) system. INDICATION: Screening mammogram. COMPARISON: Prior exam(s) were available and reviewed for comparison. DENSITY: c. The breast(s) are heterogeneously dense, which may obscuresmall masses. FINDINGS: No mammographic findings of malignancy. IMPRESSION: Negative. RECOMMENDATION: Annual Screening Mammogram ASSESSMENT: BI-RADS: 1: Negative. Angelo Miner M.D. IMYue BI PROCEDURES Final Resu lt * Basic Metabolic Panel (07/12/2024 11:33 AM CDT) Potassium, P 4.2 3.6 - 5.2 mmol/L 07/12/2024 1:57 PM CDT OWAT Sodium, P 141 135 - 145 mmol/L 07/12/2024 1:57 PM CDT OWAT Chloride, P 104 98 - 107 mmol/L 07/12/2024 1:57 PM CDT OWAT Bicarbonate, P 29 22 - 29 mmol/L 07/12/2024 1:57 PM CDT OWAT Anion Gap, P 8 7 - 15 07/12/2024 1:57 PM CDT OWAT BUN (Blood Urea Nitrogen), P 15 6 - 21 mg/dL 07/12/2024 1:57 PM CDT OWAT Creatinine 0.73 0.59 - 1.04 mg/dL 07/12/2024 1:57 PM CDT OWAT Estimated GFR (eGFR) >90 >=60 mL/min/BSA 07/12/2024 1:57 PM CDT OWAT Comment: Estimated GFR calculated using the 2020 CKD_EPI creatinine equation. Calcium, Total, P 9.9 8.8 - 10.2 mg/dL 07/12/2024 1:57 PM CDT OWAT Glucose, P 94 70 - 140 mg/dL 07/12/2024 1:57 PM CDT OWAT Blood (Blood, Venous) 07/12/2024 11:33 AM CDT 07/12/2024 1:20 PM CDT us Angelo Miner M.D. LAB BLOOD ADD-ON Final Resul t [facility] [address] [place] [address], [place] OWAT [facility] in [place] [address] [place] [address] from Last 3 Months Insurance [facility] Member Subscriber Plan / Payer (Ef fective 2021-Present) Name:Astrid Koch Relation to Subscriber:Self Name:Astrid Koch Payer ID:Not on file Type:PPO Address: [facility] [id number] [place] [id number] Care Teams Paper Goods Machine Set Up Operator Relationship Specialty Start Date End Date Angelo Miner M.D. [address] [place] [address] [phone] PCP - General Family Medicine 08/05/21
--- OUTSIDE RECORDS SUMMARY | 2024-08-30 11:27 | XMS_ITS | Encounter Summary ---
Author Organization [facility] Address [address] [place] [address] Care Team Providers Care Jewel Bearing Polisher Name Role Phone Angelo Miner M.D. Primary Care Provider Reason for Visit * Reason Comments Med Change Request Encounter Details Date Type Department Care Team (Late st Contact Info) Description 07/14/2024 Refill Department of Family Medicine, [facility], in [place], [place] [address] [facility] [place] [address] Angelo Miner M.D. [address] [place] [address] Med Change Request Social History Tobacco Use Types Packs/Day Years Used Date Smoking Tobacco: Former Smokeless Tobacco: Never [facility] Utilities Answer Date Recorded In the past 12 months has [facility] electric, gas, oil, or water company threatened to shut off services in your [...] your living situation today? I have a [facility] place to live 07/14/2024 Comments No Sex and Gender Information Value Date Recorded Sex Assigned at Female 07/14/2024 12:58 PM CDT Legal Sex Female 6:59 AM RIB CLOTH KNITTER Gender Identity Not on file Sexual Orientation Straight 07/14/2024 12 :58 PM CDT documented as of this encounter Plan of Treatment Not on file documented as of this encounter Visit Diagnoses Not on filedocumented in this encounter Care Teams Jewel Bearing Polisher Relationship Specialty Start Date End Date Angelo Miner M.D. NPEren: [phone] [address] [place] [address] [place] [address] PCP - General Family Medicine 08/05/21 documented as of this encounter
--- OUTSIDE RECORDS SUMMARY | 2024-08-30 11:27 | XMS_ITS | Encounter Summary ---
Author Organization [facility] Address [address] [place] [address] Care Team Providers Care Multi Spindle Operator Name Role Phone Angelo Miner M.D. Primary Care Provider [phone] Reason for Referral * Outpatient (Routine) - Closed Specialty Diagnoses / Procedures Referred By Pato clement Referred To Contact Diagnoses Screening Mammogram Breast Cancer Procedures BI Breast Screening Bilateral with Tomosynthesis Angelo Miner M.D. [address] [place] [address] Phone: tel: fax: [facility] Region Referral ID Status Reason Start Date Expiration Date Visits Re quested Visits Authorized [id number] Closed 05/10/2024 05/10/2025 1 1 Reason for Visit * Outpatient (Routine) - Closed Specialty Diagnoses / Procedures Referred By Pato clement Referred To Contact Diagnoses Screening Mammogram Breast Cancer Procedures BI Breast Screening Bilateral with Tomosynthesis Angelo Miner M.D. [address] [place] [address] Phone: tel: fax: [facility] Region Referral ID Status Reason Start Date Expiration Date Visits Re quested Visits Authorized [id number] Closed 05/10/2024 05/10/2025 1 1 Encounter Details Date Type Department Care Team (Latest Contact Info) Description 07/12/2024 11:30 AM CDT - 07/12/2024 11:59 PM CDT Hospital Encounter Department of Radiology in [place], [place] [address] [facility] [place] [address] Angelo Miner M.D. [address] [place] [address] Screening Mammogram Breast Cancer Discharge Disposition: Home or Self Care Social History Tobacco Use Types Packs/Day Years Used Date Smoking Tobacco: Former Smokeless Tobacco: Never Humiliation, Afraid, Rape, and Kick questionnair e [...] PHQ-2 Answer Date Recorded PHQ-2 Score 1 04/23/2023 Exercise Vital Sign Answer Date Recorde d On average, how many days pe r week do you engage in moderate to strenuous exercise (like a brisk walk)? 7 days Minutes of Exercise per Session Not on file 04/23/2023 Hunger Vital Sign Answer Date Recorded Within the past 12 months, y ou worried that your food would run out before you got the money to buy more. Never true 04/23/20 Within the past 12 months, t he food you bought just didn't last and you didn't have money to get more. Never true 04/23/2023 PRAPARE - Transportation Answer Date Re corded In the past 12 months, has l ack of transportation kept you from medical appointments or from getting medications? No 04/05 In the past 12 months, has l ack of transportation kept you from meetings, work, or from getting things needed for daily living? No 04/23/2023 Nutrition Answer Date Recorded On average, how many serving s of fruits and vegetables do you eat per day (serving size is equal to 1 cup or approximately the size of a tennis ball)? 3-5 04/23/2023 Dental Answer Date Recorded Dental: Regular Dentist Yes 04/23/20 23 Employment Answer Date Recorded Employment status Employed and actively working without restrictions 04/23/2023 Housing Stability Answer Date Recorded What is your living situation today? 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 CAN TAKE UP TO 3 PER DAY 270 tablet 3 12/10/2023 multivitamin capsule Take 1 capsule by mouth daily. ofloxacin (OCUFLOX) 0.3 % ophthalmic solution 09/30/2023 albuterol 90 mcg/actuation inhaler Inhale 2 puffs every 4 (four) hours as needed for wheezing. 18 g 11 10/14/2023 4 allopurinoL (Zyloprim) 100 mg tablet take 1 tablet by mouth every day 90 tablet 3 04/19/2024 4 azithromycin (Zithromax Z-Alex) 250 mg tablet 2 tablets (500 mg) once and then 1 tablet Daily for 4 days 6 tablet 10/14/2023 4 benzonatate (TESSALON PERLES) 100 mg capsule Take 1 capsule (100 mg total) by mouth every 4 (four) hours as needed for cough. 20 capsule 10/14/2023 4 clobetasoL (TEMOVATE) 0.05 % cream Apply 1 Application topically as needed. Apply to Rash. 4 cyclobenzaprine (FLEXERIL) 10 mg tablet Take 1 tablet (10 mg total) by mouth at bedtime as needed for muscle spasms. 30 tablet 11 04/23/2023 4 fluconazole (DIFLUCAN) 100 mg tablet Take 1 tablet (100 mg total) by mouth as needed (Use only if Thrush present from inhaler usage.). 15 tablet 5 04/23/2023 4 fluticasone propion-salmeter oL (Advair Diskus) 250-50 mcg/dose diskus inhaler Inhale 1 puff 2 (two) times a day. Rinse mouth with water after use to reduce aftertaste and incidence of candidiasis. Do not swallow. 60 each 11 10/14/2023 4 losartan-hydroCH LOROthiazide (HYZAAR) 50-12.5 mg per tablet TAKE 1 TABLET BY MOUTH EVERY DAY 90 tablet 3 04/28/2023 4 nabumetone (RELAFEN) 500 mg tablet TAKE 1 TABLET BY MOUTH TWICE A DAY 180 tablet 3 04/27/2023 4 documented as of this encounter Plan of Treatment Not on file documented as of this encounter Procedures Procedure Name Priority Date/Time Associated Diagnosis Comments BI BREAST SCREENING BILATERAL WITH TOMOSYNTHESIS RAD - Routine (most inpatients and all outpatients) 07/12/2024 11:57 AM CDT Screening Mammogram Breast Cancer documented in this encounter Results * BI Breast Screening Bilateral with [...] Annual Screening Mammogram ASSESSMENT: BI-RADS: 1: Negative. us Angelo Miner M.D. IMG BI PROCEDURES Final Resu lt documented in this encounter Visit Diagnoses Diagnosis Screening Mammogram Breast Cancer documented in this encounter Care Teams Multi Spindle Operator Relationship Specialty Start Date End Date Angelo Miner M.D. [address] [place] [phone] PCP - General Family Medicine 08/05/21 documented as of this encounter
--- OUTSIDE RECORDS SUMMARY | 2024-08-30 11:27 | XMS_ITS | Clinical Summary ---
Author Organization [facility] Address [address] [place] [address] Care Team Providers Care Screw Machine Hand Name Role Phone Angelo Miner M.D. Primary Care Provider Source Comments Patient records contain information from all sites at [facility]. For routine questions regarding patient records, call [phone] during business hours, M-F 8:00 AM - 5:00 PM Central Time. Record requests for emergency care only can be directed to [phone] at any time.[facility] Allergies Active Allergy Reactions Criticality Noted Date [...] 10/14/2023 Asthma 10/14/2023 History Of Falling 10/14/2023 Encounters Date Type Department Care Team Description 07/14/2024 1:30 PM CDT Comprehensive Visit Department of Family Medicine, [facility], in [address] [phone] Angelo Miner M.D. Well Adult Examination Normal (Primary Dx); Hypertension Essential Primary; Asthma (HCC); Rash; Hyperlipidemia; Overweight Body Mass Index 25-29.9 Adult 07/14/2024 Refill Department of Family Medicine, [facility], in [address] [address] Angelo Miner M.D. Med Change Request 07/12/2024 11:30 AM CDT - 07/12/2024 11:59 PM CDT Hospital Encounter Department of Radiology in [address] [phone] Angelo Miner M.D. Screening Mammogram Breast Cancer Discharge Disposition: Home or Self Care 07/12/2024 11:20 AM CDT - 07/12/2024 11:29 AM CDT Hospital Encounter Department of Laboratory Medicine in [address] [place] [address] Angelo Miner M.D. Monitoring For Therapeutic Drug Therapy Discharge Disposition: Home or Self Care from Last 3 Months Immunizations Name Administration Dates Next Due Influenza, Injectable, Mdck, Quadrivalent 2021,07/16/2021 Influenza, Quadrivalent, Adjuvanted, Preservativ e Free 07/21/2023 RSV: respiratory syncytial v irus (ABRYSVO) bivalent vaccine 07/14/2024 SARS-COV-2 (COVID-19) - PFIZ ER (Discontinued)(12 years or older) 10/08/2021 Tdap 04/23/2023 influenza trivalent high dose (HD)(PF) Family History Medical History Relation Name Comments Multiple myeloma Brother Arthritis Father Coronary artery disease Father Rheumatoid arteritis Father Ovarian cancer Mother Lung cancer Other brother Breast cancer Sister breathing issue Sister Relation Name Status Comments Brother Father Mother Other brother Sister Social History Tobacco Use Types Packs/Day Years Used Date Smoking Tobacco: Former Smokeless Tobacco: Never Tobacco Cessation:Counseling Given: Not Answered [facility] Utilities Answer Date Recorded In the past 12 months has e [employer], gas, oil, or water [employer] threatened to shut off services in your [...] your living situation today? 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 Gender Identity Not on file Sexual Orientation Straight 07/14/2024 12 :58 PM CDT Last Filed Vital Signs Vital Sign Reading Time Taken Comments Blood Pressure 133/61 07/14/2024 1:21 PM CDT Pulse 53 07/14/2024 1:21 PM CDT Temperature 35.7 C (96.3 F) 07/14/2024 1:21 PM CDT Respiratory Rate 16 07/14/2024 1:21 PM CDT Oxygen Saturation 96% 10/14/2023 10:52 AM CAB WORKER Inhaled Oxygen Concentration - - Weight 78.5 kg (173 lb 1 oz) 07/14/2024 1:21 PM CDT Height 162.3 cm (5' 3.9) 07/14/2024 1:21 PM CDT Body Mass Index 29.8 07/14/2024 1:21 PM CDT Plan of Treatment Health Maintenance Due Date Last Done Comments CT Colonography 1960 Cologuard 1960 FIT 1960 Hepatitis C Screening 1960 Pneumococcal vaccine (65+ years) (1 of 2 - PCV) 1964 Zoster Vaccines (1 of 2) 2008 COVID-19 Vaccine (2 - season) 2024 10/08/2021 Creatinine Level (Kidney Function Test) 07/12/2025 07/12/2024, 04/23/2023 Mammogram 07/12/2025 07/12/2024, 05/05, 04/23/2023, Additional history exists Potassium Level 07/12/2025 07/12/2024, 04/23/2023 Sodium Level 07/12/2025 07/12/2024, 04/23/2023 Office Visit for Blood Pressure Check / Re-check 07/14/2025 07/14/2024 Visit: Chronic Disease, age 18+ 07/14/2025 07/14/2024 Colonoscopy 08/05/2025 08/05/2015 (Perf ormed elsewhere) Colorectal Cancer Screening 08/05/2025 Fasting Glucose for Diabetes Screening 07/12/2027 07/12/2024, 04/23/2023 DTaP,Tdap,and Td Vaccines (2 - Td or Tdap) 04/23/2033 04/23/2023 Bone Density Scan (Osteoporosis Screen) Discontinued 09/03/2023 Depression Screening (Annual PHQ-2) Completed 07/14/2024, 07/14/2024 Fall Risk Screen (Annual) Completed 07/14/2024 Influenza Vaccine Completed 07/14/2024, , 07/15/2022, Additional history exists RSV vaccine - (32-36 weeks) or 60+ years Completed 07/14/2024 IPV Vaccines Aged Out No longer eligi ble based on patient's age to complete this topic Procedures Procedure Name Priority Date/Time Associated Diagnosis [...] ASSESSMENT: BI-RADS: 1: Negative. Angelo Miner M.D. IMG BI PROCEDURES Final Resu lt * Basic [...] M.D. LAB BLOOD ADD-ON Final Resul t [facility] [address] [place] [address], [place] OW[place] [facility] [place] [address] [place] [address] from Last 3 Months Insurance [facility] Care Teams Screw Machine Hand Relationship Specialty Start Date End Date Angelo Miner M.D. [address] [place] [address] [place] [phone] PCP - General Family Medicine 08/05/21
--- OUTSIDE RECORDS SUMMARY | 2024-08-30 11:27 | XMS_ITS | Encounter Summary ---
Author Organization [facility] Address [address] [place] [address] Care Team Providers Care Clinical Documentation Specialist Name Role Phone Angelo Miner M.D. Primary Care Provider [phone] Encounter Details Date Type Department Care Team (Latest Contact Info) Description 07/12/2024 11:20 AM CDT - 07/12/2024 11:29 AM CDT Hospital Encounter Department of Laboratory Medicine in [place], [place] [address] [facility] [place] [phone] Angelo Miner M.D. [address] [facility] [place] [phone] Monitoring For Therapeutic Drug Therapy Discharge Disposition: Home or Self Care Social [...] your living situation today? 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 18 g 11 10/14/2023 allopurinoL (Zyloprim) 100 mg tablet take 1 [...] Procedure Name Priority Date/Time Associated Diagnosis Comments BASIC METABOLIC PANEL, S/P Routine 07/12/2024 11:33 AM CDT Monitoring For Therapeutic Drug Therapy documented in this encounter Results * Basic Metabolic Panel (07/12/2024 11:33 AM CDT) [facility] Potassium, P 4.2 3.6 - 5.2 mmol/L [...] M.D. LAB BLOOD ADD-ON Final Resul t [facility] [address] [place] [address], [place] OWAT [facility] [place] [address] [place] [address] documented in this encounter Visit Diagnoses Diagnosis Monitoring For Therapeutic Drug Therapy documented in this encounter Care Teams Clinical Documentation Specialist Relationship Specialty Start Date End Date Angelo Miner M.D. [address] [place] [phone] PCP - General Family Medicine 08/05/21 documented as of this encounter
--- OUTSIDE RECORDS SUMMARY | 2024-08-30 11:27 | XMS_ITS ---
Author Organization [facility] Address [address] [place] [address] Care Team Providers Care Time Stamp Assembler Name Role Phone Unavailable Unavailable Unavailable Surgery Details Not on file Complications Check Surgery Details section. Procedure Estimated Blood Loss Check Surgery Details section. Procedure Findings Check Surgery Details section. Procedure Specimens Taken Check Surgery Details section.
--- OUTSIDE RECORDS SUMMARY | 2024-08-30 11:27 | XMS_ITS | Encounter Summary ---
Author Organization [facility] Address [address] [place] [address] Care Team Providers Care Orchid Transplanter Name Role Phone Angelo Miner M.D. Primary Care Provider [phone] Reason for Visit * Reason Comments Other Medication review. A nnual. Discuss lab results and mammogram. * Outpatient (Routine) - Closed Specialty Diagnoses / Procedures Referred By Pato t Referred To Contact Family Medicine LupilloWendy Crawford APRN, C.N.P., D.N.P. [address] [place] [address] Phone: tel: fax: [facility] Region Referral ID Status Reason Start Date Expiration Date Visits Re quested Visits Authorized [id number] Closed 10/14/2023 10/13/2026 1 1 Encounter Details Date Type Department Care Team (Latest Contact Info) Description 07/14/2024 1:30 PM CDT Comprehensive Visit Department of Family Medicine, [facility], in [place], [place] [address] [place] [phone] Angelo Miner M.D. [address] [place] [address] Well Adult Examination Normal (Primary Dx); Hypertension Essential Primary; Asthma (HCC); Rash; Hyperlipidemia; Overweight Body Mass Index 25-29.9 Adult Social History Tobacco Use Types Packs/Day Years Used Date Smoking Tobacco: Former Smokeless Tobacco: Never Tobacco Cessation:Counseling Given: Not Answered [facility] Utilities Answer Date Recorded In the past 12 months has th e Software [employer], [employer], oil, or water [employer] threatened to shut off services in your [...] your living situation today? 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 Gender Identity Not on file Sexual Orientation Straight 07/14/2024 12 :58 PM CDT documented as of this encounter Last Filed Vital Signs Vital Sign Reading Time Taken Comments Blood Pressure 133/61 07/14/2024 1:21 PM CDT Pulse 53 07/14/2024 1:21 PM CDT Temperature 35.7 C (96.3 F) 07/14/2024 1:21 PM CDT Respiratory Rate 16 07/14/2024 1:21 PM CDT Oxygen Saturation - - Inhaled Oxygen Concentration - - Weight 78.5 kg (173 lb 1 oz) 07/14/2024 1:21 PM CDT Height 162.3 cm (5' 3.9) 07/14/2024 1:21 PM CDT Body Mass Index 29.8 07/14/2024 1:21 PM CDT documented in this encounter H&P Notes * Angelo Miner M.D. - 07/14/2024 1:30 PM CDT SUBJECTIVE CHIEF COMPLAINT / REASON FOR VISIT Other (Medication review. Annual. Discuss lab results and mammogram.) HISTORY OF PRESENT ILLNESS Astrid Koch is a 64 y.o. female with past medical history significant for anxiety, arthritis,asthma, COVID-19, hypertension, obesity who presents today for Other (Medication review. Annual. Discuss lab results and mammogram.). Patient stated that she has been experiencing occasional palpitation lasts for few minutes every few times a month. She denies any associated symptoms. She reported this could be related to her anxiety. She deferred any workup at this time. She stated that she will return to the clinic if symptoms gets worse. She denies smoking cigarette, drinking alcohol or using any recreational drugs. She stated that she has been eating healthy and trying to lose weight. She lost 5 lb since last year. 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 REVIEW OF SYSTEMS REVIEW OF SYSTEMS Current Outpatient Medications: albuterol 90 mcg/actuation inhaler, Inhale 2 puffs every 4 (four) hours as needed for wheezing., Disp: 18 g, Rfl: 11 allopurinoL (Zyloprim) 100 mg tablet, Take 1 tablet (100 mg total) by mouth daily., Disp: 90 tablet, Rfl: 3 clobetasoL (Temovate) 0.05 % cream, Apply 1 Application topically as needed (rash). Apply to Rash.,Disp: 30 g, Rfl: 11 cyclobenzaprine (FlexeriL) 10 mg tablet, Take 1 tablet (10 mg total) by mouth at bedtime as needed for muscle spasms., Disp: 30 tablet, Rfl: 11 escitalopram (LEXAPRO) 5 mg tablet, TAKE 1 TABLET BY MOUTH DAILY. CAN TAKE UP TO 3 PER DAY, Disp: 270 tablet, Rfl: 3 fluconazole (Diflucan) 100 mg tablet, Take 1 tablet (100 mg total) by mouth as needed (Use only if Thrush present from inhaler usage.)., Disp: 15 tablet, Rfl: 5 losartan-hydroCHLOROthiazide (Hyzaar) 50-12.5 mg per tablet, Take 1 tablet by mouth daily., Disp: 90 tablet, Rfl: 3 multivitamin capsule, Take 1 capsule by mouth daily., Disp: , Rfl: nabumetone (Relafen) 500 mg tablet, Take 1 tablet (500 mg total) by mouth 2 (two) times a day., Disp: 180 tablet, Rfl: 3 ofloxacin (OCUFLOX) 0.3 % ophthalmic solution, , Disp: , Rfl: fluticasone propion-salmeteroL (Wixela Inhub) 250-50 mcg/dose diskus inhaler, Inhale 1 puff 2 (two)times a day. Rinse mouth with water after use to reduce aftertaste and incidence of candidiasis. Donot swallow., Disp: 60 each, Rfl: 11 Pertinent positive ROS are listed above in HPI. ALLERGIES Penicillins PAST MEDICAL HISTORY Past Medical History: Diagnosis Date Anxiety Arthritis Asthma (HCC) COVID-19 NOS 05/2020 Depression Hypertension NOS PAST SURGICAL HISTORY Past Surgical History: Procedure Laterality Date APPENDECTOMY CARPAL TUNNEL RELEASE Bilateral KNEE SURGERY Left Pt had 7 surgeries because of arthritis-no replacment OOPHORECTOMY, PARTIAL OR TOTAL, UNILATERAL OR BILATERAL;.. 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 Patient has had a hysterectomy. FAMILY HISTORY Family History Problem Relation Name Age of Onset Ovarian cancer Mother 73 Coronary artery disease Father Rheumatoid arteritis Father Arthritis Father Breast cancer Sister 35 Other (breathing issue) Sister Multiple myeloma Brother Lung cancer Other brother SOCIAL HISTORY Social History Socioeconomic History Marital status: Tobacco Use Smoking status: Former Smokeless tobacco: Never OBJECTIVE BP 133/61 (BP Location: Left arm, Patient Position: Sitting, Cuff Size: Regular) Pulse (!) 53 Temp (!) 35.7 ??C (Temporal) Resp 16 Ht 162.3 cm Wt 78.5 kg BMI 29.80 kg/m?? PHYSICAL EXAMINATION General: Alert, pleasant female appearing in no acute distress. Neuro: Oriented x 3, responds appropriately to questions and follows commands without difficulty. Pupils equal and reactive to light. Cranial nerves II-XII grossly intact. EOMs intact. Muscle tone and strength normal and equal bilaterally without weakness or involuntary movements. Sensation intact to light touch in all extremities. Head: Normocephalic, atraumatic. Eyes: Sclerae clear without injection, conjunctivae without drainage, erythema or matting. ANDREWS. Ears: Normal auditory canals and external ears. Tympanic membranes pearly bilaterally. Nontender. Oropharynx: Moist and pink without exudate. Normal buccal mucosa. Dental hygiene adequate. Neck: Supple without lymphadenopathy. No thyromegaly or carotid bruits. Heart: Normal S1, S2 with regular rate and rhythm. No murmurs, rubs, or clicks heard. Lungs: Clear to auscultation bilaterally posteriorly without rhonchi, wheezes, or crackles. No cough on exam today. Respirations are easy and unlabored. Breasts: Deferred Abdomen: Soft, nondistended, nontender to palpation without palpable masses or organomegaly. Genitourinary: deferred Musculoskeletal: Back is straight and non-tender, full range of motion of upper and lower extremities. Feet: Good pedal pulses, no lesions, nail hygiene good. Extremities: No upper or lower extremity edema or cyanosis. Skin: Warm and dry without rashes on the visible areas. Psychiatric: Appropriate mood and affect. Makes good eye contact. Dressed appropriately. Contributes meaningfully to conversation. ASSESSMENT / PLAN #1 Well Adult Examination Normal Preventive care discussed with the patient. Immunization updated. Mammogram within normal limit. Bone density scan done last year within normal limit. Colonoscopy will be due in 2024. Monthly breast exam. Yearly ophthalmology and dental visit. Screening for diabetes is normal. #2 Hypertension Essential Primary Blood pressure within normal limit. Continue on Hyzaar. #3 Asthma (HCC) Doing very well on Wixela twice daily and albuterol as needed. She has a prescription for Diflucan to prevent oral thrush. #4 Rash Prescription for clobetasol sent to the pharmacy. She does have occasional Itchiness andrash in herarm and back. #5 Hyperlipidemia Reluctant to start any statin Because of side effects in the past. Deferred lipid panel. #6 Overweight Body Mass Index 25-29.9 Adult Counseled about healthy diet and exercise. Encouraged weight loss. #7 Palpitation Deferred workup. Patient reported symptoms Could be mostly related to anxiety. She stated that she will start observe her symptoms more carefully and if it gets worse she will return to the clinic. We discussed this could be cardiac related. Patient understands. #8 Anxiety Doing very well on Lexapro 5 mg daily. Contracted safety. Other orders - Family Medicine office visit (clinic) - fluconazole (Diflucan) 100 mg tablet; Take 1 tablet (100 mg total) by mouth as needed (Use only if Thrush present from inhaler usage.)., Starting Thu07/14/2024, Normal - allopurinoL (Zyloprim) 100 mg tablet; Take 1 tablet (100 mg total) by mouth daily., Starting Thu07/14/2024, Normal - cyclobenzaprine (FlexeriL) 10 mg tablet; Take 1 tablet (10 mg total) by mouth at bedtime as needed for muscle spasms., Starting Thu07/14/2024, Normal - clobetasoL (Temovate) 0.05 % cream; Apply 1 Application topically as needed (rash). Apply to Rash., Starting Thu07/14/2024, Normal - nabumetone (Relafen) 500 mg tablet; Take 1 tablet (500 mg total) by mouth 2 (two) times a day., Starting Thu07/14/2024, Normal - albuterol 90 mcg/actuation inhaler; Inhale 2 puffs every 4 (four) hours as needed for wheezing., Starting Thu07/14/2024, NormalMay substitute generic Proair, generic Ventolin or generic Proventil as appropriate for patient or insurance preference - losartan-hydroCHLOROthiazide (Hyzaar) 50-12.5 mg per tablet; Take 1 tablet by mouth daily., Starting [facility] 07/14/2024, Normal - fluticasone propion-salmeteroL (Wixela Inhub) 250-50 mcg/dose diskus inhaler; Inhale 1 puff 2 (two) times a day. Rinse mouth with water after use to reduce aftertaste and incidence of candidiasis. Do not swallow., Starting [facility] 07/14/2024, Normal - influenza high dose (65 years and older unless otherwise indicated)(PF) - RSV: Respiratory Syncytial Virus (ABRYSVO) Bivalent (32 through 36 weeks gestation OR age 60 yrsand older) Angelo Miner M.D. documented in this encounter Plan of Treatment Not on file documented as of this encounter Visit Diagnoses Diagnosis Well Adult Examination Normal- Primary Hypertension Essential Primary Asthma (HCC) Rash Hyperlipidemia Overweight Body Mass Index 25-29.9 Adult documented in this encounter Care Teams Orchid Transplanter Relationship Specialty Start Date End Date Angelo Miner M.D. [address] [place] [phone] PCP - General Family Medicine 08/05/21 documented as of this encounter
== END 2024-08-30 11:23 | disposition home or self-care (01) ==
LOC: NFLDUCREF 11:24
PROVIDERS: Visit Provider Nurse Practitioner Family
DX: R50.9 Fever, unspecified (principal); R05.9 Cough, unspecified; R06.02 Shortness of breath
CPT/HCPCS: 87086

== ENCOUNTER 2025-04-13 07:06 | Outpatient (CLI) | payer BC, SELFPAY ==
--- NOTE | 2025-04-13 07:15 | CRLHL7_ITS ---
For Patients: As a result of the 21st Century Cures Act, medical imaging exams and procedure reports are released immediately into your electronic medical record. You may view this report before your referring provider. If you have questions, please contact your health care provider. EXAM: MRI OF THE RIGHT KNEE, WITHOUT CONTRAST CLINICAL INDICATION: Knee pain. Swelling. PRIOR SURGERY: None reported. COMPARISON PLAIN FILMS: None available at time of interpretation. COMPARISON CROSS-SECTIONAL IMAGING STUDIES: None available at time of interpretation. TECHNICAL: Axial, sagittal and coronal T1, PD, PD FS and T2 FS images. FINDINGS: OSSEOUS STRUCTURES: No fracture, marrow edema or marrow replacement process. JOINT SPACE AND CAPSULE: Effusion: Moderate-sized effusion. No significant synovitis appreciated. Joint Bodies: None seen. CRUCIATE LIGAMENTS: Anterior Cruciate Ligament: Normal. Posterior Cruciate Ligament: Normal. EXTENSOR MECHANISM: Distal Quadriceps Tendon: Normal. Patellar Tendon: Normal. Medial Patellar Retinaculum and Medial Patellofemoral Ligament: Normal. Lateral Patellar Retinaculum: Normal. Normal patellar alignment. No patella alejandra. Normal trochlear depth. Normal lateral trochlear inclination. MEDIAL COLLATERAL LIGAMENT AND POSTEROMEDIAL CORNER COMPLEX: Medial Collateral Ligament: Normal. Medial Head of the Gastrocnemius and Semimembranosus Tendons: Normal. LATERAL COLLATERAL LIGAMENT COMPLEX AND POSTEROLATERAL CORNER COMPLEX: Fibular Collateral Ligament: Normal. Distal Biceps Femoris Tendon Complex: Normal. Iliotibial Band: Normal. Popliteus Tendon: Normal. Posterolateral Corner Capsule: Normal. MEDIAL COMPARTMENT: Medial Meniscus: Horizontal tear exiting the inferior articular surface of posterior body and posterior horn sparing the root. Articular Cartilage: Shallow uniform grade 2 thinning. LATERAL COMPARTMENT: Lateral Meniscus: Degenerative tearing and volume loss anterior horn. Horizontal tear superior articular surface anterior body with indistinct margins. Some blunting of the free margin throughout the body. Intact posterior horn and root. Articular Cartilage: Irregular grade 2 to grade 3 undulating thinning. Small marginal osteophytes. PATELLOFEMORAL COMPARTMENT: Articular Cartilage: Chronic appearing grade 4 cartilage loss median ridge and lateral facet of the patella on the outer margin of the lateral trochlea with patchy sclerosis cysts and edema. Small marginal osteophytes. PERIARTICULAR SOFT TISSUES: Popliteal Cyst: Moderately large popliteal cyst. Greatest diameter 7 x 1 cm. Periarticular Cysts or Ganglia: None. Bursae: No prepatellar, superficial infrapatellar, deep infrapatellar, pes anserinus or semimembranosus/MCL bursitis. Musculature: No muscle atrophy or muscle edema. Subcutaneous and Soft Tissues: No subcutaneous or soft tissue mass, edema or fluid collection. Neurovascular Structures: Normal. IMPRESSION: 1. Moderately large bland joint effusion. Moderately large popliteal Tena`s cyst. 2. Horizontal tear medial meniscus. 3. Degenerative multifocal tearing anterior horn and anterior body lateral meniscus. 4. 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 Dictated by Shun Rodriguez MD @ 04/13/2025 8:13:15 AM (Electronically Signed)
== END 2025-04-13 07:07 | disposition home or self-care (01) ==
LOC: MRI 07:07
PROVIDERS: PCP Family Medicine; Visit Provider Family Medicine
DX: M25.561 Pain in right knee (principal); M25.461 Effusion, right knee; S83.241A Other tear of medial meniscus, current injury, right knee, initial encounter; S83.281A Other tear of lateral meniscus, current injury, right knee, initial encounter; M17.11 Unilateral primary osteoarthritis, right knee
CPT/HCPCS: 73721

== ENCOUNTER 2025-05-23 10:08 | Outpatient (CLI) | payer BC, SELFPAY | END 2025-05-23 10:09 | disposition home or self-care (01) | PROVIDERS: PCP Family Medicine; Visit Provider Family Medicine | DX: I10 Essential (primary) hypertension (principal); M10.9 Gout, unspecified; E78.2 Mixed hyperlipidemia | CPT/HCPCS: 80048; 80061; 84550; 85025 ==

== ENCOUNTER 2025-06-14 10:00 | Outpatient (RCR) | payer BC, SELFPAY ==
--- NOTE | 2025-04-28 14:52 | PT.OPEX ---
PT [facility] Outpatient Eval PT [facility] Outpatient Eval Start: 04/28/25 07:51 Freq: Status: Active Protocol: Document 04/28/25 07:56 MRS (Rec: 04/28/25 14:46 MRS No Response) E-signed By Olivia Calvillo DPT Physical Therapy Outpatient Evaluation Insurance Information Recert Due Date 07/29/25 Insurance Name Blue Cross/Blue Shield Insurance [place] Information/Comments Medical Diagnosis L shoulder Pain M25.512 Treating Diagnosis Pain in Left Shoulder M25.512 Pain in Upper Arm M79.62 Muscle Weakness M62.81 Imaging Report XR= osteoarthritis but no fracture Information Referring MD Yosvany Spear MD Subjective Preferred Name Astrid Subjective Initial subjective: Astrid is a left-hand dominant female who reports shoulder pain that originally starting in 2019 when she was hospitalized for COVID due to being lifted by her under arms to be boosted in bed. Since that time, she has had weak shoulders and less ROM. Since hospitalization, she has been able to resume walking and running which has helped her breathing, but her shoulders have never fully recovered . Seven weeks ago, Astrid had intense knee pain while completing her 3 miles walk resulting in her needing to quickly descend to sitting on a curb with left hand outstretched to control decent. She had instant pain in shoulder after descent. Since that time, pain will come and go. She works overnights at [employer] which can aggravate shoulder, but she has been using bio freeze, ice, occasional heat, and self-massage which will help. Pain wakes her up from sleeping. BOUCHRA: Quick descent to sitting on curb because of knee pain. Instant shoulder pain after episode. Aggravating factors: reaching back to put on seatbelt. 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 -ER0:??T5/T4 -ER90:?90/87 -Abd:?180/179 -FF:?175/172 -IR:?T9/T7 Strength UE Strength (R/L):? -ER0: R: 5/5, L: 4+/5? -IR0: R: 5/5, L: 5/5? -Subscap: R: 5/5, L: 4+/5? -FF: R: 5/5, L: 5/5? Palpation Increased muscle tension in bicep and pec muscles. Posture Forward head and rounded shoulders. Other/Pertinent ROM: WNL and pain free Objective Strength: apin free -ER0: R: 5/5, L: 4+/5? -Subscap: R: 5/5, L: 4+/5? Cervical Screen:? -Spurlings:?negative Impingement:? -Amanda-Cristhian:? -Neers:?positive for pain Labral:? -Hill?s:?negative :?Bicep Tendon:? -Speeds:?positive for pain Rotator Cuff:? -Subscap Lift Off:?negative ? Functional Test SPADI: 42.31% Performed & Score Assessment Assessment/ Patient is a 65 year old female presenting to physical Impression therapy for evaluation and treatment of left shoulder pain. Patient presents with impaired posture, muscle weakness, and pain. These impairments are limiting the patient's ability to reach to buckle her seatbelt, don her bra, and sleep without waking in pain. Patient appears motivated to participate in PT and presents with good prognosis to improve mobility, strength, proprioception and return to functional activities with skilled physical therapy intervention.? Educated patient on proper form and muscle activation throughout session in order to optimize muscle function and proper body mechanics.? Primary Functional difficulty sleeping, difficulty buckling seatbelt, Limitations difficulty donning bra, weakness, and pain Plan of Care Rehabilitation Good Potential Physical Therapy STG's to be met in 2-4 weeks: Goals 1.) Pt will report a decrease in pain to 8/10 or less at worst 2.) Pt will be independent and compliant with HEP. LTG's to be met in 8-10 weeks: 1.) Pt will demonstrate consistent HEP compliance to ensure progress in reaching established goals during course of care.? 2.) Patient is able to sleep with waking 0-1 times per week due to pain.? 3.) Patient demonstrates 4+ to 5/5 strength Coordination/ Referral Source Communication With Treatment Plan/ Ice/Cold/Vasopneumatic,Joint Mobilization,Manual Direct Interventions Therapy,Neuromuscular Re-ed,Self-Care/Home Management, Therapeutic Activities,Therapeutic Exercises Patient Will Be Completion of LTG(s),Skills Plateau,Independent w/HEP, Discharged From Independently Progressing Therapy Evaluation Billing Untimed Code 30 Treatment Minutes Complexity Low Certification Information Initial 04/28/25 Certification Date Ending Certification 07/29/25 Date Provider Signature Yes Required Provider Signature POC & Medical Necessity Shows Agreement With Physician NPI Number Write NPI# Here Physician Comment/ : Change Physician Signature Please Sign/Date Here & Date Requested
== END 2025-06-14 11:32 | disposition home or self-care (01) ==
PROVIDERS: PCP Family Medicine; Visit Provider Family Medicine
DX: M25.512 Pain in left shoulder (principal); M62.81 Muscle weakness (generalized); Z51.89 Encounter for other specified aftercare
CPT/HCPCS: 97110; 97140; 97161

== ENCOUNTER 2025-06-21 08:40 | Day surgery (SDC) | payer BC, SELFPAY ==
[2025-06-21] VITALS (36 sets, daily range): BP systolic 88–165; BP diastolic 42–77; PULSE 42–64; RESP 12–20; TEMP 35.8–36.7; O2SAT 86–99; BMI 32.1
[2025-06-21] MEDS: LACTATED RINGERS 1000 ML 1,000 ML 100 ML IV (08:55)
--- NOTE | 2025-06-21 09:04 | W.PM.H&PU ---
History & Physical Update History & Physical Update H&P Reviewed and patient assessed: No changes noted
[2025-06-21] MEDS: ACETAMINOPHEN 500 MG TABLET 1000 MG PO ×3 (09:30→21:44)
[2025-06-21] MEDS: OXYCODONE (CR) 10 MG TAB.ER.12H PO (09:30)
[2025-06-21] MEDS: SODIUM CHLORIDE 0.9 % (FLUSH) 10 ML SYRINGE IVF (09:39)
[2025-06-21] MEDS: MIDAZOLAM HCL 1 MG/ML inj IVP (09:43)
--- NOTE | 2025-06-21 09:45 | SUR.PREOP ---
TIME?OUT:?09 PT/RN/MDA?VERIFICATION?OF?SURGICAL?SITE,?PROCEDURE,?AND?CONSENT OBTAINED?PRIOR?TO?INVASIVE?PROCEDURE.
--- NOTE | 2025-06-21 10:10 | CRLHL7_ITS ---
For Patients: As a result of the Cures Act, medical imaging exams and procedure reports are released immediately into your electronic medical record. You may view this report before your referring provider. If you have questions, please contact your health care provider. Indication: POST OP TOTAL KNEE Technique: Two views right knee Findings/Impression: Hardware from a right total knee arthroplasty is in satisfactory position. Bone alignment is normal. No sign of acute fracture. Postop changes are within normal limits. Dictated by Yosvany Reno MD @ 06/21/2025 12:18:03 PM (Electronically Signed)
[2025-06-21] MEDS: TRANEXAMIC ACID 100 MG/ML INJ 1000 MG IV (10:12)
--- NOTE | 2025-06-21 11:10 | P.ORPRC_ITS ---
Procedure Note Date of procedure: 06/21/25 Procedure: PREOPERATIVE DIAGNOSIS: 1. Right knee osteoarthritis, primary, severe POSTOPERATIVE DIAGNOSIS: 1. Right knee osteoarthritis, primary, severe PROCEDURE: 1. Right total knee arthroplasty SURGEON: Ed Harper MD. EXPLOSIVE ORDNANCE MANAGER: SUNDEEP Godfrey - Of note, a skilled purchasing assistant was critical for this case to aid in patient positioning, tissue retraction, limb manipulation/positioning, and closure. ANESTHESIA: Spinal anesthetic EBL: 100ml IMPLANTS: DePuy J&J uncemented TKA - Attune PS femur size 5 regular Size 5 tibia 5 mm poly spacer 32 mm Affixium patella TOURNIQUET: None COMPLICATIONS: None evident INDICATIONS: The patient is a pleasant 65-year-old female who has experienced severe right knee pain and difficulty bearing weight. Workup included x-rays which revealed severe osteoarthrosis in the knee. Given the deformity, the dysfunction, and the pain, as well as the failure of nonoperative management, recommendation was made for surgery. FINDINGS: Full-thickness chondral loss diffusely through the patellofemoral compartment. To a lesser degree lateral and medial compartments. Moderate effusion upon entering the joint. DESCRIPTION OF PROCEDURE: Following a thorough discussion of risks, benefits, and alternatives consent was obtained and the right knee was marked. The patient was brought to the operating room and placed supine on the operating table. Induction of anesthesia was undertaken. 2 g IV Ancef and 1 g tranexamic acid was administered within 1 hr of incision preoperatively. Proper time-out was performed identifying proper patient, site, procedure. The operative extremity was prepped and draped in the appropriate sterile fashion using ChloraPrep after the patient was positioned supine with all bony prominences well padded. A longitudinal, anterior, midline skin incision was made starting approximately 3cm proximal to the superior pole of the patella and advanced distal to the tibial tubercle. A sub vastus approach was utilized. After mobilizing the patella, retropatellar fatpad was resected and the synovium in the suprapatellar pouch excised to visualize the anterior femoral cortex. Patellar prep began with an initial measurement/thickness of 20 mm. It was resected back to approximately 14 mm. The patella prep was completed with drilling and a trial placed. Femoral preparation was performed via an intramedullary guide. Step drill allowed access into the femoral canal. The distal cutting guide was placed with 5? of valgus and 10 mm cut on the distal femur. Femur was sized using a anterio r referencing guide in 3? of external rotation. This found have a best fit with the sizing noted above. The 4 in 1 cutting block was then placed, and the distal femur shaped accordingly. The box cut was then created and the trial implant inserted to confirm appropriate fit. We turned our attention to the proximal tibia. Extramedullary guide was utilized for cutting with the goal of being 90 degree cut from the mechanical axis of the tibia in the varus/valgus plane utilizing tibial crest as the primary alignment. Initially a 4 mm resection was performed from the medial tibial plateau. Ultimately, balancing was achieved in both flexion and extension in both varus and valgus. The knee was able to achieve full extension comfortably. It was sized to be a best fit with as noted above. At this stage, trial implants were removed, the tibia and femoral and patellar components were opened and inserted. The real poly spacer was opened and inserted. A 3 min Betadine soak performed. Finally, a final irrigation round with normal saline was performed. Closure performed with 0 PDS and #0 Stratafix for the quad tendon/retinaculum. 2-0 Vicryl/Stratafix for the subcutaneous and 4-0 Monocryl for subcuticular closure. Dressings were applied and the patient was awoken from anesthesia and transferred the PACU in stable condition. A skilled purchasing assistant was critical for this case to aid in patient positioning, tissue retraction, bone exposure, limb manipulation/positioning, patient safety, and closure. PLAN: 1. Weight bear as tolerated operative extremity. 2. 23 hr perioperative antibiotics. 3. Ice. 4. PT/OT consults for ambulation assistance/mobility education. 5. Social work consult for discharge planning. 6. DVT prophylaxis with at SCDs, and aspirin twice daily.
--- NOTE | 2025-06-21 11:21 | P.NB_ITS ---
Nerve Block Nerve Block Time Seen by Provider: 09:45 Date Seen: 06/21/25 Type of block requested by surgeon for post-operative analgesia: geniculars Side: right Time out performed: Yes Verification of patient name: Yes Verification of date of : Yes Site marking: site marked Name of person performing procedure: Jem Continuous monitoring Was continuous monitoring of O2 sat, B/P, analytical research chemist, recorded every 15 minutes?: Yes Procedure Checklist: sterile prep, needles and gloves Ultrasound guided. Images saved: Yes Medications given in 5ml increments after negative aspiration: Marcaine %: 0.25 mL: 9 Needle gauge: 25 Patient tolerated procedure well: Yes Block Charges Block Charge (with Pro Fee): Genicular Nerve Block
--- NOTE | 2025-06-21 11:21 | P.NB_ITS ---
Nerve Block Nerve Block Time Seen by Provider: 09:45 Date Seen: 06/21/25 Type of block requested by surgeon for post-operative analgesia: adductor canal Side: right Time out performed: Yes Verification of patient name: Yes Verification of date of : Yes Site marking: site marked Name of person performing procedure: Jem Continuous monitoring Was continuous monitoring of O2 sat, B/P, monitoring specialist, recorded every 15 minutes?: Yes Procedure Checklist: sterile prep, needles and gloves Ultrasound guided. Images saved: Yes Medications given in 5ml increments after negative aspiration: Marcaine %: 0.25 mL: 15 Needle gauge: 20 Precedex (mcg): 25 Patient tolerated procedure well: Yes Block Charges Block Charge (with Pro Fee): Femoral Nerve Use of Ultrasound Machine for Block: Yes- US Guidance/pain block
--- NOTE | 2025-06-21 11:47 | P.ANES_ITS ---
Anesthesia Charges Start Date/Time Anesthesia Start Date: 06/21/25 Anesthesia Start Time: 09:49 Stop Date/Time Anesthesia Stop Date: 06/21/25 Anesthesia Stop Time: 11:43 Coding CPT Codes CPT Codes: ANESTH KNEE ARTHROPLASTY - 72461 ([id number]) P2 - PATIENT W/MILD SYST DISEASE, QK - INVESTMENT UNDERWRITER 2-4 CNCRNT ANES PROC, QX - DEDICATED REGIONAL DRIVER SVC W/ MD MED DIRECTION
--- NOTE | 2025-06-21 11:47 | P.ANES_ITS ---
Anesthesia Charges Start Date/Time Anesthesia Start Date: 06/21/25 Anesthesia Start Time: 09:49 Stop Date/Time Anesthesia Stop Date: 06/21/25 Anesthesia Stop Time: 11:43 Coding CPT Codes CPT Codes: ANESTH KNEE ARTHROPLASTY - 35547 ([id number]) P2 - PATIENT W/MILD SYST DISEASE, QK - AGER OPERATOR 2-4 CNCRNT ANES PROC
--- NOTE | 2025-06-21 11:47 | W.ANESCHARGE ---
Anesthesia Charges Start Date/Time Anesthesia Start Date: 06/21/25 Anesthesia Start Time: 09:49 Stop Date/Time Anesthesia Stop Date: 06/21/25 Anesthesia Stop Time: 11:43 Coding CPT Codes CPT Codes: ANESTH KNEE ARTHROPLASTY - 16300 ([id number]) P2 - PATIENT W/MILD SYST DISEASE, QK - GAS PRODUCER 2-4 CNCRNT ANES PROC, QX - MARINE EXTENSION AGENT SVC W/ MD MED DIRECTION
--- NOTE | 2025-06-21 11:47 | W.ANESCHARGE ---
Anesthesia Charges Start Date/Time Anesthesia Start Date: 06/21/25 Anesthesia Start Time: 09:49 Stop Date/Time Anesthesia Stop Date: 06/21/25 Anesthesia Stop Time: 11:43 Coding CPT Codes CPT Codes: ANESTH KNEE ARTHROPLASTY - 48148 ([id number]) P2 - PATIENT W/MILD SYST DISEASE, QK - ANESTHESIOLOGIST ASSISTANT 2-4 CNCRNT ANES PROC
--- NOTE | 2025-06-21 12:22 | SUR.PHASEI ---
patient met discharge criteria per anesthesia
--- NOTE | 2025-06-21 12:30 | PC.NURSE ---
Notified MD of patient's vital signs. Low BP, low HR, Low Oxygen. See EMR for numbers. 500cc bolus of NS ordered and administered. Will keep patient flat for the time being. Patient denies dizziness, light headedness, shortness of breath. Patient stated she normally has a lower heart rate and this is consistent with recent office visits. CWMS good. Alert and oriented X3.
[2025-06-21] MEDS: 0.9 % SODIUM CHLORIDE 500 ML 500 ML IV (12:40)
--- NOTE | 2025-06-21 14:48 | PC.NURSE ---
End of shift report: Patient returned from the OR at 1215 today. POD 0. Patient is alert and oriented X3. Incision on Right knee is clean, dry and intact. CWMS is good. PIV in right hand is patent and has LR running at 75/hr. Lung sounds clear. Denies nausea and pain at this time. Spinal anesthesia is wearing off. Patient is able to move both lower extremities and can feel sensation to touch. BP and HR continues to be low but pt is asymptomatic. Oxygen saturations do dip at times, but patient uses the IS and saturations improve. PT will evaluate patient this afternoon. Patient plans to return home tomorrow with the help of daughter and son.
[2025-06-21] MEDS: CEFAZOLIN 2 GM in 0.9 % SODIUM CHLORIDE Mini-bag 100 ML IVPB ×2 (15:49→23:36)
--- NOTE | 2025-06-21 16:31 | PM.IMCN1 ---
Date of Consult Patient: [facility] Patient Consult date: 06/21/25 Requesting Physician: Orthopedics Primary Care Provider: Yosvany Spear MD Consult Narrative Reason for consult: Medical management Narrative: Astrid Koch is a 65 year old female past medical history significant for osteoarthritis, gout, asthma, SORAYA, hypertension is POD#0 s/p right total knee arthroplasty, Dr. De Guzman. Postoperatively, patient reports pain is currently adequately managed. Using ice to posterior knee for improved comfort. Denies headache or dizziness. Denies chest pain or shortness of breath. Tolerating orals without nausea vomiting. There have been no perioperative complications or nursing concerns reported. Estimated total blood loss documented as 100 ml. Updated and reviewed the active medical problems, past medical history, past surgical history, social history, allergies and medications in our electronic EMR. Review of Systems Narrative: REVIEW OF SYSTEMS: Complete review of systems performed and negative unless otherwise stated in HPI or below. PFSH PFSH Medical History Generalized anxiety disorder ?F41.1 - Generalized anxiety disorder (ICD-10) Moderate persistent asthma ?J45.40 - Moderate persistent asthma, uncomplicated (ICD-10) Gout ?M10.9 - Gout, unspecified (ICD-10) Mixed hyperlipidemia ?E78.2 - Mixed hyperlipidemia (ICD-10) Bilateral knee pain ?M25.561 - Pain in right knee (ICD-10) ?M25.562 - Pain in left knee (ICD-10) Essential hypertension ?I10 - Essential (primary) hypertension (ICD-10) Surgical History Tarsal tunnel syndrome ?G57.50 - Tarsal tunnel syndrome, unspecified lower limb (ICD-10) History of arthroscopy of left knee ?Z98.890 - Other specified postprocedural states (ICD-10) History of appendectomy (10/31/22) ?Z90.49 - Acquired absence of other specified parts of digestive tract (ICD-10) S/P exploratory laparotomy ?Z98.890 - Other specified postprocedural states (ICD-10) S/P tubal ligation ?Z98.51 - Tubal ligation status (ICD-10) S/P carpal tunnel release ?Z98.890 - Other specified postprocedural states (ICD-10) History of hysterectomy ?Z90.710 - Acquired absence of both cervix and uterus (ICD-10) Family History Mother Ovarian cancer, Onset Age: 73 Father Coronary artery disease Rheumatoid arthritis Sister Breast cancer, Onset Age: 35 Brother Multiple myeloma Lung cancer Social History Narrative: works at [employer] What is your current living situation?: I presently have a place to live Problems where you live: no known problems In the past 12 months, utilities in danger of being shut off: no In past 12 months, lack of transportation kept you from medical appts, meetings, work, or getting things needed for daily living: no In the past 12 mos, have been you worried that your food would run out before you had money to buy more?: never true In the past 12 mos, the food you bought just didn't last and you didn't have money to buy more?: never true Highest level of school completed/degree received: Associate degree: academic program Smoking Status: Never smoker Do you use any of these nicotine containing products: None Second hand tobacco smoke exposure: No How often do you have a drink containing alcohol: 2-4 times a month Alcohol type: hard liquor How many standard drinks containing alcohol do you have on a typical day: 1 or 2 How often do you have six or more drinks on one occasion: Never AUDIT-C Alcohol total score: 2 Non-prescribed substance use: denies use Caffeine: Yes How often does anyone, including family, friends and others, physically hurt you: never How often does anyone, including family, friends and others, insult or talk down to you: never How often does anyone, including family, friends and others, threaten you with harm: never How often does anyone, including family, friends and others, scream or curse at you: never service: No Meds Home Medications and Allergies Home Medications ?Medication ?Instructions ?Recorded ?Confirmed ?Type escitalopram oxalate 5 mg tablet 5 mg PO DAILY 10/30/22 06/21/25 History losartan 50 mg-hydrochlorothiazide 1 tab PO DAILY 10/30/22 06/21/25 History 12.5 mg tablet nabumetone 500 mg tablet 500 mg PO BID 10/30/22 06/21/25 History Held on 06/21/25. Instructions: Resume on 07/22/25. allopurinol 100 mg tablet 100 mg PO DAILY 09/30/23 06/21/25 History fluticasone 250 mcg-salmeterol 50 1 ea inhalation BID 01/04/24 06/21/25 History mcg/dose blistr powdr for inhalation (Maria Luisa Inhub) albuterol sulfate 90 mcg/actuation 2 puff inhalation Q4-6H PRN 02/06/25 06/21/25 History aerosol inhaler clobetasol 0.05 % topical cream 1 applic topical QDAY PRN 02/06/25 06/21/25 History cyclobenzaprine 10 mg tablet 10 mg PO QPM PRN 02/06/25 06/21/25 History fluconazole 100 mg tablet 100 mg PO QDAY PRN 02/06/25 06/21/25 History (Diflucan) multivitamin 1 tab PO QDAY 02/06/25 06/21/25 History acetaminophen 500 mg capsule 500 - 1,000 mg (1 - 2 x 500 mg) PO 06/21/25 Rx Q6H PRN #100 caps aspirin 81 mg tablet,delayed 81 mg PO BID #60 tabs 06/21/25 Rx release oxycodone 5 mg tablet 2.5 - 5 mg (0.5 - 1 x 5 mg) PO 06/21/25 Rx Q4-6H PRN pain #42 tabs sennosides 8.6 mg-docusate sodium 1 - 4 tab-cap (1 - 4 x 8.6-50 mg) 06/21/25 Rx 50 mg tablet (Senna-S) PO BID PRN constipation #60 tabs Allergies Allergy/AdvReac Type Severity Reaction Status Date / Time Penicillins Allergy Severe Hives Verified 06/21/25 09:04 Exam Narrative: Exam Narrative: PHYSICAL EXAM General: Pleasant, conversant, NAD HEENT: Normocephalic, atraumatic, sclera white, EOMI, oral mucosa moist Cardiovascular: RRR, S1S2. No pitting edema Pulmonary: CTA bilaterally without rhonchi, rales, expiratory wheezes. No dyspnea Neurological: Alert, answering questions appropriately, cranial nerves intact, no focal findings Extremities: No gross joint deformity or swelling. Postoperative dressing in place, dry. Neurovascularly intact Skin: Warm, dry. Const: Vital Signs, click to edit/add: Vital Signs - 24 hr 06/21/25 09:35 06/21/25 11:40 06/21/25 11:45 Temperature 98.0 F 97.6 F 97.6 F Pulse Rate 64 55 L 49 L Respiratory Rate 16 12 12 Blood Pressure 165/77 H 103/55 L 103/50 L Pulse Oximetry 99 97 91 Oxygen Delivery Me thod Room Air OxyMask OxyMask Oxygen Flow Rate 6 6 06/21/25 11:50 06/21/25 11:55 06/21/25 12:00 Temperature 97.6 F 97.6 F 97.1 F L Pulse Rate 52 L 52 L 51 L Respiratory Rate 12 16 18 Blood Pressure 99/51 L 103/55 L 102/50 L Pulse Oximetry 91 94 92 Oxygen Delivery Me thod Room Air Nasal Cannula Room Air Oxygen Flow Rate 2 06/21/25 12:05 06/21/25 12:17 06/21/25 12:18 Temperature 97.1 F L 96.5 F L Pulse Rate 54 L 48 L 48 L Respiratory Rate 14 16 Blood Pressure 94/74 92/48 L Pulse Oximetry 93 92 95 Oxygen Delivery Me thod Room Air Oxygen Flow Rate 06/21/25 12:19 06/21/25 12:22 06/21/25 12:27 Temperature Pulse Rate 49 L 46 L 46 L Respiratory Rate 16 16 16 Blood Pressure 88/42 L 95/42 L 90/48 L Pulse Oximetry 93 94 90 Oxygen Delivery Me thod Oxygen Flow Rate 06/21/25 12:30 06/21/25 12:32 06/21/25 12:45 Temperature 96.7 F L Pulse Rate 44 L 42 L 45 L Respiratory Rate 16 16 16 Blood Pressure 91/50 L Pulse Oximetry 86 L 91 95 Oxygen Delivery Me thod Room Air OxyMask OxyMask Oxygen Flow Rate 2 2 06/21/25 12:47 06/21/25 13:00 06/21/25 13:02 Temperature Pulse Rate 45 L 45 L 45 L Respiratory Rate 16 16 16 Blood Pressure 94/48 L 93/50 L Pulse Oximetry 96 96 95 Oxygen Delivery Me thod Oxygen Flow Rate 06/21/25 13:03 06/21/25 13:15 06/21/25 13:17 Temperature 96.8 F L Pulse Rate 48 L 47 L 47 L Respiratory Rate 16 Blood Pressure 93/55 L Pulse Oximetry 95 95 95 Oxygen Delivery Me thod Room Air Oxygen Flow Rate 06/21/25 13:18 06/21/25 13:30 06/21/25 13:32 Temperature Pulse Rate 55 L 47 L 45 L Respiratory Rate 16 Blood Pressure 95/53 L Pulse Oximetry 94 98 95 Oxygen Delivery Me thod Oxygen Flow Rate 06/21/25 13:45 06/21/25 14:00 06/21/25 14:02 Temperature 97.6 F Pulse Rate 46 L 43 L 47 L Respiratory Rate 16 Blood Pressure 88/50 L Pulse Oximetry 96 94 96 Oxygen Delivery Me thod Room Air Oxygen Flow Rate 06/21/25 14:15 06/21/25 14:30 06/21/25 14:32 Temperature Pulse Rate 45 L 50 L 47 L Respiratory Rate 16 Blood Pressure 99/52 L Pulse Oximetry 97 97 Oxygen Delivery Me thod Oxygen Flow Rate Assessment and Plan Assessment and plan (1) Osteoarthritis of right knee: Problem comment: -POD#0 s/p R TKA, Dr. De Guzman -perioperative management including pain management and anticoagulation per Orthopedic surgery -encourage postoperative pulmonary hygiene -PT OT consults -plan to discharge home with son and daughter tomorrow Status: Acute (2) Moderate persistent asthma: Problem comment: -encourage pulmonary hygiene postoperatively, incentive spirometry, albuterol MDI p.r.n. Status: Acute (3) Essential hypertension: Problem comment: -mildly soft blood pressures postoperatively, plan to resume antihypertensives tomorrow following discharge if appropriate Status: Chronic Total Time Spent Total Time Spent: Today I spent 55 minutes seeing the patient, reviewing Expanse and EPIC notes/diagnostics, discussing the care plan with our care time that includes social work, PT/OT, pharmacy, RT, fci and documenting my impressions and plan in the medical record.
[2025-06-21] MEDS: SENNOSIDES 1 TAB TABLET 2 TAB PO (20:49)
[2025-06-21] MEDS: ASPIRIN 81 MG TABLET EC PO (20:50)
--- NOTE | 2025-06-21 21:22 | PC.NURSE ---
End of shift, Pt has been very pleasant. she is alert x4. pain right knee 2-03/14- she is getting po pain meds. Incision on Right knee C/D/I/ .IV was SL for good po intake. encouraged IS use,. PT worked with her. she is eating, drinking and voiding., she is a fall risk and alarms are on.
[2025-06-22] MEDS: ACETAMINOPHEN 500 MG TABLET 1000 MG PO (03:22)
[2025-06-22 03:27] VITALS: BP 139/55; PULSE 57; RESP 18; TEMP 36.9; O2SAT 92
[2025-06-22 07:00] VITALS: BP 110/54; PULSE 64; RESP 16; TEMP 36.4; O2SAT 94
--- NOTE | 2025-06-22 07:12 | PC.NURSE ---
Shift note ([id number]): Patient pleasant, alert and oriented. Assist of one with walker and gait belt. Given Scheduled Tylenol, PRN Oxycodone and PRN Dilaudid for pain rated 5-40/10. Dressing clean, dry and intact. Tolerating regular diet.?
[2025-06-22] MEDS: CEFAZOLIN 2 GM in 0.9 % SODIUM CHLORIDE Mini-bag 100 ML IVPB (07:53)
[2025-06-22] MEDS: ESCITALOPRAM 10 MG TABLET 5 MG PO (07:53)
[2025-06-22] MEDS: SENNOSIDES 1 TAB TABLET 2 TAB PO (08:33)
[2025-06-22] MEDS: ASPIRIN 81 MG TABLET EC PO (08:34)
--- NOTE | 2025-06-22 10:09 | P.ORPN_ITS ---
Subjective Subjective Date Seen: 06/22/25 Principal diagnosis: Status postop day 1 right total knee arthroplasty Interval history: Patient reports doing well. No acute events over night. Pain managed with scheduled and PRN medications, ice. DVT prophylaxis: 81 mg aspirin by mouth twice daily, SCDs, walking. Denies fevers, chills, aches, N/V, CP, SOB/BUSTOS, or lightheadedness. States that she is well prepared at home, and will have help with daughter and son. Also states that she purchased 81 mg aspirin, and has the bottle at home. Ortho Exam Narrative Exam Narrative: -Patient appears comfortable; no apparent acute distress -Alert and oriented times 3 -Operative knee mildly swollen; soft tissues supple; no ecchymosis; no erythematous streaking Warmth appropriate -Surgical dressing clean, dry, no drainage. Dressing adhesive is not stain intact distal lateral -Bilateral calfs soft; no significant swelling, edema, tenderness, erythema, discoloration, warmth, or palpable cords -2+ DP/PT pulses, intact dermatomes and myotomes distally (5/5 strength) Const Vital Signs, click to edit/add: Vital Signs - 24 hr 06/21/25 11:40 06/21/25 11:45 06/21/25 11:50 Temperature 97.6 F 97.6 F 97.6 F Pulse Rate 55 L 49 L 52 L Pulse Rate [Right Pulse Oximeter] Respiratory Rate 12 12 12 Blood Pressure 103/55 L 103/50 L 99/51 L Blood Pressure [Left Arm] Pulse Oximetry 97 91 91 Oxygen Delivery Method OxyMask OxyMask Room Air Oxygen Flow Rate 6 6 06/21/25 11:55 06/21/25 12:00 06/21/25 12:05 Temperature 97.6 F 97.1 F L 97.1 F L Pulse Rate 52 L 51 L 54 L Pulse Rate [Right Pulse Oximeter] Respiratory Rate 16 18 14 Blood Pressure 103/55 L 102/50 L 94/74 Blood Pressure [Left Arm] Pulse Oximetry 94 92 93 Oxygen Delivery Method Nasal Cannula Room Air Room Air Oxygen Flow Rate 2 06/21/25 12:17 06/21/25 12:18 06/21/25 12:19 Temperature 96.5 F L Pulse Rate 48 L 48 L 49 L Pulse Rate [Right Pulse Oximeter] Respiratory Rate 16 16 Blood Pressure 92/48 L 88/42 L Blood Pressure [Left Arm] Pulse Oximetry 92 95 93 Oxygen Delivery Method Oxygen Flow Rate 06/21/25 12:22 06/21/25 12:27 06/21/25 12:30 Temperature 96.7 F L Pulse Rate 46 L 46 L 44 L Pulse Rate [Right Pulse Oximeter] Respiratory Rate 16 16 16 Blood Pressure 95/42 L 90/48 L Blood Pressure [Left Arm] Pulse Oximetry 94 90 86 L Oxygen Delivery Method Room Air Oxygen Flow Rate 06/21/25 12:32 06/21/25 12:45 06/21/25 12:47 Temperature Pulse Rate 42 L 45 L 45 L Pulse Rate [Right Pulse Oximeter] Respiratory Rate 16 16 16 Blood Pressure 91/50 L 94/48 L Blood Pressure [Left Arm] Pulse Oximetry 91 95 96 Oxygen Delivery Method OxyMask OxyMask Oxygen Flow Rate 2 2 06/21/25 13:00 06/21/25 13:02 06/21/25 13:03 Temperature Pulse Rate 45 L 45 L 48 L Pulse Rate [Right Pulse Oximeter] Respiratory Rate 16 16 Blood Pressure 93/50 L Blood Pressure [Left Arm] Pulse Oximetry 96 95 95 Oxygen Delivery Method Oxygen Flow Rate 06/21/25 13:15 06/21/25 13:17 06/21/25 13:18 Temperature 96.8 F L Pulse Rate 47 L 47 L 55 L Pulse Rate [Right Pulse Oximeter] Respiratory Rate 16 Blood Pressure 93/55 L Blood Pressure [Left Arm] Pulse Oximetry 95 95 94 Oxygen Delivery Method Room Air Oxygen Flow Rate 06/21/25 13:30 06/21/25 13:32 06/21/25 13:45 Temperature Pulse Rate 47 L 45 L 46 L Pulse Rate [Right Pulse Oximeter] Respiratory Rate 16 Blood Pressure 95/53 L Blood Pressure [Left Arm] Pulse Oximetry 98 95 96 Oxygen Delivery Method Oxygen Flow Rate 06/21/25 14:00 06/21/25 14:02 06/21/25 14:15 Temperature 97.6 F Pulse Rate 43 L 47 L 45 L Pulse Rate [Right Pulse Oximeter] Respiratory Rate 16 Blood Pressure 88/50 L Blood Pressure [Left Arm] Pulse Oximetry 94 96 97 Oxygen Delivery Method Room Air Oxygen Flow Rate 06/21/25 14:30 06/21/25 14:32 06/21/25 15:30 Temperature 96.8 F L Pulse Rate 50 L 47 L Pulse Rate [Right Pulse Oximeter] 50 L Respiratory Rate 16 16 Blood Pressure 99/52 L Blood Pressure [Left Arm] 125/60 Pulse Oximetry 97 91 Oxygen Delivery Method Room Air Oxygen Flow Rate 06/21/25 15:45 06/21/25 15:45 06/21/25 16:41 Temperature Pulse Rate Pulse Rate [Right Pulse Oximeter] 60 Respiratory Rate 16 16 Blood Pressure Blood Pressure [Left Arm] 103/56 L Pulse Oximetry 97 91 93 Oxygen Delivery Method Room Air Room Air Oxygen Flow Rate 06/21/25 17:39 06/21/25 18:55 06/21/25 23:45 Temperature Pulse Rate Pulse Rate [Right Pulse Oximeter] 58 L 54 L Respiratory Rate 16 16 Blood Pressure Blood Pressure [Left Arm] 110/54 L 120/63 Pulse Oximetry 92 93 97 Oxygen Delivery Method Room Air Room Air Oxygen Flow Rate 06/21/25 23:45 06/21/25 23:45 06/22/25 03:27 Temperature 97.7 F 98.5 F Pulse Rate Pulse Rate [Right Pulse Oximeter] 63 57 L Respiratory Rate 20 18 Blood Pressure Blood Pressure [Left Arm] 144/53 H 139/55 L Pulse Oximetry 97 97 92 Oxygen Delivery Method Room Air Room Air Room Air Oxygen Flow Rate 06/22/25 07:00 06/22/25 07:00 06/22/25 07:00 Temperature 97.6 F Pulse Rate Pulse Rate [Right Pulse Oximeter] 64 64 Respiratory Rate 16 16 Blood Pressure Blood Pressure [Left Arm] 110/54 L Pulse Oximetry 94 94 Oxygen Delivery Method Room Air Oxygen Flow Rate 06/22/25 07:00 Temperature Pulse Rate Pulse Rate [Right Pulse Oximeter] Respiratory Rate 16 Blood Pressure Blood Pressure [Left Arm] Pulse Oximetry 94 Oxygen Delivery Method Room Air Oxygen Flow Rate Assessment and Plan Assessment and plan (1) Osteoarthritis of right knee: Problem details: -POD#1 s/p R TKA, Dr. De Guzman -perioperative management including pain management and anticoagulation per Orthopedic surgery -encourage postoperative pulmonary hygiene -PT OT consults -plan to discharge home with son and daughter tomorrow Status: Acute (2) Moderate persistent asthma: Problem details: -encourage pulmonary hygiene postoperatively, incentive spirometry, albuterol MDI p.r.n. Status: Acute (3) Essential hypertension: Problem details: -mildly soft blood pressures postoperatively, plan to resume antihypertensives tomorrow following discharge if appropriate Status: Chronic Plan - Complete 23 hour perioperative antibiotics. - PT/OT consult for education and assistance. - Social work consult for discharge planning - Prescribed analgesics as needed - DVT prophylaxis: 81 mg aspirin by mouth twice daily (again which she has at h ome, but is not on her home medication list), walking, and SCDs - Anticipation is for discharge to home with family today 06/22/2025 if the patient remains medically stable, pain is controlled, and they are safe with mobilization.
[2025-06-22 11:00] VITALS: BP 133/66; PULSE 64; RESP 16; TEMP 36.4; O2SAT 94
== END 2025-06-22 10:55 | disposition home or self-care (01) ==
LOC: OR 08:41 → MEDSURG 08:41
PROVIDERS: PCP Family Medicine; Visit Provider Orthopaedic Surgery Sports Medicine
PROC: (CPT 27447; principal; 2025-06-21 10:00)
DX: M17.11 Unilateral primary osteoarthritis, right knee (principal); G89.18 Other acute postprocedural pain; J45.40 Moderate persistent asthma, uncomplicated; F41.1 Generalized anxiety disorder; I10 Essential (primary) hypertension; M10.9 Gout, unspecified; E78.2 Mixed hyperlipidemia; Z79.82 Long term (current) use of aspirin
CPT/HCPCS: 27447; 01402; 64447; 64454; 73560; 76942; 97110; 97116; 97161; 97165; 97530; 97535; A9270; C1776; J0665; J0690; J1100; J1171; J2250; J2371; J2405; J2704; J3010; J3490; J7030; J7120

== ENCOUNTER 2025-09-06 07:30 | Outpatient (RCR) | payer BC, SELFPAY ==
--- NOTE | 2025-05-05 09:29 | PT.OPEX ---
PT [facility] Outpatient Eval PT [facility] Outpatient Eval Start: 05/05/25 07:24 Freq: Status: Active Protocol: Document 05/05/25 07:24 HLA (Rec: 05/05/25 09:25 HLA [id number]) E-signed By Shawna Padron, PT, DPT Physical Therapy Outpatient Evaluation Insurance Information Recert Due Date 08/02/25 Insurance Name Blue Cross/[employer] Shield Medical Diagnosis R knee pain/OA Treating Diagnosis preop teaching R TKA, instruct in ROM, ex, transfers, gt Referring MD Harper Subjective Preferred Name Astrid Subjective 65 year old female with hx of depression, HTN, asthma, OA, and recent L shldr tendinopathy is undergoing a R TKA 06/21/[address] Harper. She is here for preop teaching, home program instruction to help her with getting in/out of bed, up to stand and walk safely after surgery. At baseline, she lives in a 1 level home , 5 step entry with railing on R ascending. Basement laundry. She has son to stay with her after surgery. Pain Comments pain R knee all over. Increases standing, walking, sitting, bending, any light touch. Date of Last 04/25/25 Physician Visit Date of Surgery (If 06/21/25 applicable) Precautions Treatment L shldr tendinopathy Precautions/ Contraindications Weight Bearing Weight Bear as Tolerated Status Therapy Limitations/ Not Limited Systems Review Objective Range of Motion R/L Shoulder full with discomfort abd/full elbow/wrist/hand full/full Hip 120/120 Knee 3-110/0-120 Ankle Strength R/L Shoulder R 4+/5 / L 5/5 elbow/wrist/hand R/L 5/5 Hip R/L 5/5 Knee 4+/5 R/ 5/5 L Ankle Swelling swells entire knee by end of work day Palpation palpation joint line, patella R knee Balance & Gait Gait mild limp R LE, 'catches' and won't go away. Stairs ascending reciprocally, step to pattern descending if reciprocal severe pain R knee stairs step to rail + wall Balance good seated/standing good- Sensation/Reflexes intact to light touch Functional Test LEFS 42/80 or 52.5% Performed & Score Assessment Assessment/ 65-year-old female has hx of OA R knee and is scheduled Impression for a R TKA 06/21/[address] Harper. She is here for preop teaching, ex instruction. Pt has been undergoing PT for R shldr pain/weakness as well. PMHx includes HTn, depression, OA, asthma, R shldr pain and allergy to penicillin. 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 Pt was instructed in TKA ex program (quad sets, ham sets, ankle pumps, heel slides, SAQ, SLR, seated knee flex/ ext and hamstring stretches) per protocol to be practiced pre-operatively and for improved learning post-operatively. Therapist instructed in positioning, use of ice, activity level, transfers, gait with walker , stairs, use of ice and fall prevention, OP PT progression. PT goals were met. She will return for therapy after her R TKA in Jun. Primary Functional impaired ROM Limitations impaired strength pain with gt and mobility Plan of Care Rehabilitation Good Potential Physical Therapy Today Goals 1. Pt will verbalize understanding of TKA ex program 2. Pt will demonstrate safe transfers and amb with ww to prevent falls and allow safe return home after TKA. 3. Pt will perform 3 stairs ind and safely for return home after her TKA 06/21/25. Within 10-12 weeks: 1. Pt will have knee AROM 0-120 degrees for transfers, ADLs, and stairs independence. 2. Pt will amb 20 min with se cane or no device as indicated, safely and independently for community and household ambulation. 3. Pt will be independent in home ex program for nursing home pain management and to promote independence and to decrease fall risk. 4. Pt will ascend/descend 13 stairs with railing independently for community mobility. Coordination/ Referral Source,Patient Caregiver Communication With Treatment Plan/ Gait Training,Ice/Cold/Vasopneumatic,Joint Mobilization Direct Interventions ,Manual Therapy,Neuromuscular Re-ed,Orthotics/Braces, Therapeutic Exercises Frequency/Duration today, then 2x/week x 10-12 weeks after TKA surgery Patient Will Be Completion of LTG(s),Skills Plateau,Independent w/HEP, Discharged From Independently Progressing Therapy Evaluation Billing Untimed Code 15 Treatment Minutes PT Eval No Charge No Complexity Low Certification Information Initial 05/05/25 Certification Date Ending Certification 08/02/25 Date Provider Signature Yes Required Provider Signature POC & Medical Necessity Shows Agreement With Physician NPI Number Write NPI# Here Physician Comment/ : Change Physician Signature Please Sign/Date Here & Date Requested
--- NOTE | 2025-06-23 08:35 | PT.OPDNX ---
[facility] Daily Note PT [facility] Daily Note Start: 05/05/25 07:24 Freq: Status: Active Protocol: Document 06/23/25 07:16 HLA (Rec: 06/23/25 08:35 HLA [id number]) E-signed By Shawna Padron, PT, DPT PT OP Daily Progress Note Visit Information Note Type Daily Note,Re-Evaluation Visit Number 2 Running Total Visit 8 Number Insurance Authorized 25 Visits Insurance Information Recert Due Date 08/02/25 Insurance Name [employer] Medical Diagnosis R knee pain/OA Treating Diagnosis preop teaching R TKA, instruct in ROM, ex, transfers, gt Referring MD Leroy Subjective Preferred Name Astrid Subjective Astrid reports pain R knee increased as block wore off , increased to 40/10, now 4/10 with oxy prior to therapy. She does report the oxy makes her 'fuzzy in the head.' Sleeping ok, once she gets comfortable. She is doing her ex. L shoulder pain has resolved since previous PT and she is happy with that. Pain Comments pain 4/10 R knee 'inside' and ant thigh Date of Last 04/25/25 Physician Visit Date of Surgery (If 06/21/25 applicable) Precautions Weight Bearing Weight Bear as Tolerated Status Home Exercise Home Exercise Access Code: [email or web address] Comments URL: [email or web address] Date: 05/05/2025 Prepared by: Shawna Padron Exercises - Supine Single Leg Ankle Pumps - 3-5 x daily - 7 x weekly - 10 reps - edema management exercise type - Supine Quad Sets - 3 x daily - 7 x weekly - 2 sets - 10 reps - 5 seconds hold - strength exercise type - Supine Short Arc Quad - 3 x daily - 7 x weekly - 10 reps - 5 seconds hold - strength exercise type - Active Straight Leg Raise with Quad Set - 3 x daily - 7 x weekly - 10 reps - 2-3 seconds hold - strength exercise type - Supine Heel Slide - 3 x daily - 7 x weekly - 10 reps - range of motion exercise type - Supine Isometric Hamstring Set - 3 x daily - 7 x weekly - 10 reps - 5 seconds hold - strength exercise type - Seated Long Arc Quad - 3 x daily - 7 x weekly - 10 reps - 5 seconds hold - range of motion/strength exercise type - Seated Knee Flexion Stretch - 3 x daily - 7 x weekly - 10 reps - 5 seconds hold - range of motion/stretch exercise type - Seated Passive Knee Extension - 3 x daily - 7 x weekly - 1 reps - 5-15 minutes hold - range of motion/ stretch exercise type Patient Education - Safe Practices For Preventing Falls - Going Up and Down Stairs With Two Rails After Surgery - Walker WBAT - Ice Objective Other/Pertinent circumference- Objective 48 cm 10 cm prox to patella 45 cm mid patella 42 cm 10 cm distal to patella mid calf 41 final: AAROM 15-70 supine, seated 14-81 Functional Test LEFS 42/80 or 52.5% preop; 19/80 or 23.8% Performed & Score Patient Instructed Yes in Risks/Benefits Therapeutic Exercise Therapeutic Exercise 39 Minutes (minutes) Therapeutic Exercise quad sets, APs, ham sets x 10 : To Restore HS AA and with strap x 10 Functional Status SLR AA SAQ AA seated knee flex, slide fwd into overpressure x 10 seated LAQ AA HS stretches education on activity level, elevation, ice, safety, fall prevention, TKA ex progression Therapeutic Activity Therapeutic sit<>stand sba, vc not to pull up on walker Activities Comments sit<>supine min assist R LE-hooks with L car transfers min assist Gait & Stair Training Gait Training/Stairs 8 Minutes (minutes) Gait & Stair practiced gt with walker, stairs step to pattern Training Comments initially and picks up walker, improved with cues for heel toe patterning, keeping walker going, reciprocal gt, able to get reciprocal gt by end of session. Activity level for home instructed. Self Care Management Training Self Care Management discussion regarding toileting, shower equip Training Treatment Minutes Untimed Code 13 Treatment Minutes Timed Code Treatment 47 Minutes Total Treatment Time 60 Billing Units Therapeutic Exercise 2 Units Re-Evaluation Units 1 Assessment/Impression Assessment/ 65-year-old female underwent R TKA 06/21/[address] Susan Harper. She returned homoe from hospital 06/22/25, son and dtr's support, 5 step entry home with railing, 1 level. PMHx includes HTN, anxiety, depression, OA, asthma, R shldr tendinopathy, gout, asthma, and allergy to penicillin. Pt works at [employer]. Pt performed quad sets, ham sets, APs, HS with strap, SAQ AA, SLR AA, seated knee flex, LAQ with strap, 10 reps. Pt to do ex 3x/day x 10 reps. HS stretch seated, supine heel prop to promote knee ext, 3 min. Instructed in use of ice, positioning, activity level, safety, fall prevention. Practiced gt with walker, getting heel toe patterning, reciprocal gt with walker. AAROM 14-81 seated R knee by end of session. Pt today presents with edema, pain surgical leg, impaired ROM, impaired strength, impaired transfers and impaired ambulation. She will benefit from twice weekly PT for ROM, strengthening, gt training, balance, home program instruction with goal to return to work, ind community amb, full ROM and strength R knee. Primary Functional impaired ROM Limitations impaired strength pain with gt and mobility Plan of Care Physical Therapy Within 10-12 weeks: Goals 1. Pt will have knee AROM 0-120 degrees for transfers, ADLs, and stairs independence. 2. Pt will amb 20 min with se cane or no device as indicated, safely and independently for community and household ambulation. 3. Pt will be independent in home ex program for halfway pain management and to promote independence and to decrease fall risk. 4. Pt will ascend/descend 13 stairs with railing independently for community mobility. Daily Plan of Care Continue per POC Equipment Information Equipment ww Information cane, toilet riser/safety frame Discharge Note Date of First Visit 05/05/25 for Therapy
== END 2025-09-06 08:39 | disposition home or self-care (01) ==
PROVIDERS: PCP Family Medicine; Visit Provider Orthopaedic Surgery Sports Medicine
DX: M17.11 Unilateral primary osteoarthritis, right knee (principal); Z96.651 Presence of right artificial knee joint; Z51.89 Encounter for other specified aftercare
CPT/HCPCS: 97110; 97112; 97116; 97140; 97161; 97164